=== PATIENT | female | born 1960 | race Caucasian/White ===

== ENCOUNTER 2016-09-22 19:48 | Inpatient (IN) | payer BC, OTHER ==
[~2016-09-22] VITALS: Ht 160 cm; Wt 44.5 kg
[2016-09-22 20:30] VITALS: BP 119/85
[2016-09-22] MEDS ORDERED: MAG HYDROX/AL HYDROX/SIMETH 30 ML LIQUID UDC PO PRN (20:30)
[2016-09-22] MEDS ORDERED: MAGNESIUM HYDROXIDE 30 ML LIQUID UDC PO PRN (20:30)
[2016-09-22] MEDS ORDERED: DICYCLOMINE HCL 20 MG TABLET PO PRN (20:30)
[2016-09-22] MEDS ORDERED: LOPERAMIDE HCL 2 MG CAPSULE PO PRN ×2 (20:30)
[2016-09-22] MEDS ORDERED: diphenhydrAMINE 50 MG CAPSULE PO PRN (20:30)
[2016-09-22] MEDS ORDERED: LORAZEPAM 2 MG/1 ML VIAL IM PRN (20:30)
[2016-09-22] MEDS ORDERED: THIAMINE HCL 200 MG/2 ML VIAL IM ONE (20:30)
[2016-09-22] MEDS ORDERED: LORAZEPAM 1 MG TABLET PO PRN ×2 (20:30)
[2016-09-22] MEDS ORDERED: MIRALAX 17 GM POWD.PACK PO PRN (20:30)
[2016-09-22] MEDS ORDERED: CLONIDINE HCL 0.1 MG TABLET PO PRN (20:30)
[2016-09-22] MEDS ORDERED: IBUPROFEN 600 MG TABLET PO PRN (20:30)
[2016-09-22] MEDS ORDERED: ONDANSETRON 4 MG/2 ML VIAL IM PRN (20:30)
--- NOTE | 2016-09-22 20:30 | NUR ---
ADMISSION NOTE PATIENT RECEIVED IN THE UNIT AT THIS TIME. PATIENT IS A 56 YEAR OLD FEMALE WHO PRESENTS TO [facility] FOR MEDICALLY SUPERVISED WITHDRAWAL FROM ETOH DEPENDENCE. VS BP- 119/85 P-87 T-97.8 R-18 PA-10/27 HEADACHE. SpO2 AT 98% ON RA. HEIGHT IS 5'3 AND WEIGHT 98 LBS. PATIENT IS ALLERGIC TO ERYTHROMYCIN. BODY CHECK DONE. PATIENT NOTED WITH ABRASION ON RIGHT FOREARM. SLIGHT BLEEDING AND RED IN COLOR. OLD SCAR ON RIGHT KNEE AND RIGHT ANKLE. LUNGS CLEAR . ABDOMEN SOFT AND NON-DISTENDED. BOWEL SOUNDS ACTIVE ON ALL QUADRANT. PATIENT STATES LAST BM WAS THIS MORNING, DIARRHEA X 2 BUT STATES SHE DID NOT HAVE ANY AFTER THAT. PATIENT DENIES DIFFICULTY URINATING. PATENT REQUESTED TO BE FULL CODE AND ON GLUTEN FREE DIET. ACCORDING TO HER SHE'S HERE FOR DETOX AND STATES HER MOM IS GETTING OLD AND HER DOG IS GETTING OLD. SHE CAN'T TAKE THIS ANYMORE. "I WANT TO MAKE THIS WORK". 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 SHE LIVES WITH HER MOM. PATIENT REPORTS PMH OF RIGHT KNEE TOTAL REPLACEMENT. RIGHT ANKLE SURGERY, IBS, (SIBO) SMALL INTESTINE BACTERIAL OVERGROWTH, GERD AND RETINA SURGERY (4 MONTHS AGO). NO SEIZURE HISTORY. SHE STATES HER MOM IS CANCER SURVIVOR (BREAST AND COLON CANCER). BOTH OF HER MOM AND SISTER ARE ALCOHOLIC. PATIENT'S PCP IS DR. JABARI GRAY. PATIENT IS THE SOURCE OF INFORMATION. PATIENT'S DRUG OF CHOICE ARE FF: ALCOHOL (BEER AND VODKA)-STARTED DRINKING WHEN SHE WAS 18 YEARS OLD. PATIENT DRINKS 2 SIX PACK AND 1 PINT OF VODKA EVERY WEEK FOR A MONTH. LAST DRINK WAS 1 PINT ON 09/22/16 PATIENT STATES THE LONGEST PERIOD OF SOBRIETY FOR HER WAS 6 YEARS ON [id number]. HER TREATMENT HISTORY WAS IN [place] ON [id number] AND IN [place] WHICH SHE'S UNABLE TO RECALL THE NAME IN 2004. SHE STATES SHE TAKES LINZESS FOR HER IBS AND NEXIUM FOR HER GERD. PATIENT APPEARS TO BE ANXIOUS, MODERATE INTOXICATION BUT COOPERATIVE AND ABLE TO ANSWERS QUESTIONS. PATIENT STATES SHE'S VERY ANXIOUS, SWEATING, NOTED WITH TREMORS, MILD HEADACHE. CIWA 10. PATIENT WAS SEEN BY DR. HEMPHILL WHILE IN INTAKE. PATIENT BROUGHT HOME MEDS AND WAS RECONCILED. PATIENT WAS PLACED ON FALL/SEIZURE PRECAUTION. PATIENT WAS ORIENTED TO SURROUNDINGS AND HOW TO USE CALL LIGHT. SAFETY MEASURES IN PLACE. CALL LIGHT IN REACH. WILL CONTINUE TO MONITOR.
[2016-09-22 20:38] LABS: *URINE HCG, QUAL NEGATIVE (NEGATIVE)
[2016-09-22 20:58] LABS: *AMPHETAMINE, URINE NEGATIVE (NEGATIVE); *BARBITURATE, URINE NEGATIVE (NEGATIVE); *CANNABINOID, URINE NEGATIVE (NEGATIVE); *COCCAINE, URINE NEGATIVE (NEGATIVE); *OPIATE, URINE NEGATIVE (NEGATIVE); *PHENCYCLIDINE SCREEN,URINE NEGATIVE (NEGATIVE)
[2016-09-22] MEDS ORDERED: LORAZEPAM 1 MG TABLET PO SCH (21:00)
[2016-09-22 21:29] LABS: BASOPHILS % (AUTO) 0.6 % (0.0-2.0); EOSINOPHILS # (AUTO) 0.1 K/uL (0.0-0.7); HEMOGLOBIN 13.1 g/dL (12.0-16.0); LYMPHOCYTES # (AUTO) 2.4 K/uL (0.8-4.8); LYMPHOCYTES % (AUTO) 35.5 % (20.5-51.5); MEAN CORPUSCULAR HEMOGLOBIN 30.4 uug (27.0-31.0); MEAN CORPUSCULAR HGB CONC 34 g/dL (32.0-37.0); MEAN CORPUSCULAR VOLUME 90.5 fL (81.0-99.0); MONOCYTES # (AUTO) 0.3 K/uL (0.1-1.30); MONOCYTES % (AUTO) 4.9 % (0.0-11.0); PLATELET COUNT (AUTO) 325 K/uL (150-450); RED BLOOD CELL COUNT(AUTO) 4.31 MIL/uL (4.20-5.40); RED CELL DISTRIBUTION WIDTH 14.4 % (11.5-14.5); WHITE BLOOD COUNT (AUTO) 6.8 K/uL (4.0-11.2)
--- NOTE | 2016-09-22 21:39 | NUR ---
ONE TIME ATIVAN ADMINISTRATION PATIENT ANXIOUS, RESTLESS, SWEATING AND TREMULOUS. CIWA 10. ONE TIME ATIVAN GIVEN . WILL MONITOR FOR EFFECTIVENESS
[2016-09-22 21:46] LABS: ALBUMIN 4.3 g/dL (3.4-5.0); BILIRUBIN,TOTAL 0.3 mg/dL (0.2-1.0); CALCIUM 8.8 mg/dL (8.5-10.1); CREATININE 0.6 mg/dL (0.6-1.3); POTASSIUM 3.9 mmol/L (3.5-5.1); TOTAL PROTEIN, SERUM 7.8 g/dL (6.4-8.2)
[2016-09-22 22:08] LABS: HIV-1 p24 ANTIGEN NON REACTIVE (NONREACTIVE); HIV-1/2 ANTIBODY NON REACTIVE (NONREACTIVE)
[2016-09-22 22:15] LABS: THYROID STIMULATING HORMONE 0.317 mIU/mL (0.358-3.740)
[2016-09-22] MEDS: HYDROXYZINE PAMOATE 25 MG CAPSULE PO PRN (22:36)
--- NOTE | 2016-09-22 22:36 | NUR ---
ATIVAN RE-ASSESSMENT /VISTARIL ADMINISTRATION PATIENT STATES ATIVAN IS ALREADY WORKING BUT SHE'S STILL ANXIOUS. CIWA 5. PRN VISTARIL GIVEN. WILL MONITOR FOR EFFECTIVENESS
--- NOTE | 2016-09-22 22:36 | NUR ---
BENADRYL ADMINISTRATION PATIENT REQUESTS FOR SLEEP AID. PRN BENADRYL RE-ASSESSMENT. WILL MONITOR FOR EFFECTIVENESS.
--- NOTE | 2016-09-22 23:10 | NUR ---
IV STARTED IV SODIUM CHLORIDE 0.9% STARTED ON LEFT ARM , 22 GAUGE. 125 MLS/HR ORDERED. INTACT AND PATENT . WILL CONTINUE TO MONITOR.
[2016-09-22] MEDS: IV NS 1000 ML 1,000 ML IV PRN (23:19)
--- NOTE | 2016-09-22 23:36 | NUR ---
PRN BENADRYL RE-ASSESSMENT PATIENT IN BED WITH EYES CLOSED. RESPIRATION EVEN AND UNLABORED. SAFETY MEASURES IN PLACE. CALL LIGHT IN REACH. WILL CONTINUE TO MONITOR.
[2016-09-23] VITALS: BP 112/76
[2016-09-23] MEDS: ACETAMINOPHEN 325 MG TABLET PO PRN (01:24)
--- NOTE | 2016-09-23 01:24 | NUR ---
PRN HEADACHE ADMINISTRATION PATIENT C/O HEADACHE 11/27. PRN TYLENOL GIVEN. WILL MONITOR FOR EFFECTIVENESS. Addendum: 09/23/16 at 0446 by DEEJAY GRAY LVN PRN TYLENOL ADMINISTRATION
--- NOTE | 2016-09-23 02:10 | NUR ---
PRN ATIVAN ADMINISTRATION PATIENT CAME UP AT THE NURSES STATION C/O ANXIETY, TREMULOUS, NO N/V. CIWA 7. RELAXATION TECHNIQUE PROVIDED. WILL MONITOR FOR EFFECTIVENESS
[2016-09-23] MEDS ORDERED: CARB32DR OP (02:22)
[2016-09-23] MEDS ORDERED: [UNRECOGNIZED DRUG - OTHER] EACHEYE (02:22)
[2016-09-23] MEDS ORDERED: [UNRECOGNIZED DRUG - OTHER] NS (02:22)
[2016-09-23] MEDS ORDERED: OLOP5DRO9 OP (02:22)
[2016-09-23] MEDS ORDERED: NICO2GUM9 BC (02:22)
[2016-09-23] MEDS ORDERED: [UNRECOGNIZED DRUG - OTHER] EACHEYE (02:22)
--- NOTE | 2016-09-23 02:24 | NUR ---
PRN TYLENOL RE-ASSESSMENT PATIENT TYLENOL HELPFUL AND EFFECTIVE. 07/30, TOLERABLE . WILL CONTINUE TO MONITOR.
--- NOTE | 2016-09-23 03:10 | NUR ---
PRN ATIVAN RE-ASSESSMENT PATIENT STATES ATIVAN HELPFUL AND EFFECTIVE. CIWA 2. WILL CONTINUE TO MONITOR.
[2016-09-23 04:00] VITALS: BP 124/87
[2016-09-23] MEDS ORDERED: NEXIUM PO (04:21)
[2016-09-23] MEDS ORDERED: LINA290C PO (04:21)
[2016-09-23] MEDS ORDERED: TRAZ-147 PO (04:21)
[2016-09-23] MEDS: HYDROXYZINE PAMOATE 25 MG CAPSULE PO PRN ×2 (05:49→16:19)
--- NOTE | 2016-09-23 05:49 | NUR ---
PRN VISTARIL ADMINISTRATION PATIENT C/O ANXIETY, RESTLESS. PRN VISTARIL. CONTINUE TO ENCOURAGE RELAXATION TECHNIQUE. WILL CONTINUE TO MONITOR.
--- NOTE | 2016-09-23 06:49 | NUR ---
PRN VISTARIL RE-ASSESSMENT PATIENT IN BED WITH EYES CLOSED. WILL CONTINUE TO MONITOR.
--- NOTE | 2016-09-23 07:30 | NUR ---
START OF SHIFT Rcvd client in room, she is A/O x 4, she presents with irritable mood, flat affect, she reports anxiety, fatigue, leg restlessness, and chills, she is c/o flushed face. She is on IV fluid therapy NaCl 0.9% 125ml/hr tolerating well, she has peripheral IV on Left hand 22G, intact. Encouraged increased fluids as tolerated. Encouraged group therapy attendance. Per shift supervisor film processing nurse, client is a 56 year old female admitted for ETOH withdrawal. She is on 4 day Ativan taper mariposa dose today @ 0900. Last CIWA 2 @ 0310, she had PRN Ativan 1mg CIWA 7 noted effective CIWA 2. PRN Benadryl for inability to sleep, slept 8 hrs. Tylenol for CEDILLO, noted effective. She reports PMH Anxiety, Depression, Fibromyalgia, Alcohol use disorder, Sedative-hypnotic use disorder, in remission. Past Surgical history Right knee replacement, Right shoulder surgery. She is full code, regular diet, Allergy to erythromycin (anaphylaxis) Client is on seizure precautions. Side rails up/padded x 2, call light within reach, bed locked in lowest positions. Will continue with plan of care.
--- NOTE | 2016-09-23 07:37 | NUR ---
END OF SHIFT NOTE PATIENT IS A 37 YEAR OLD MALE, ADMITTED FOR HEROIN/METH/CRACK AND ETOH. PATIENT WAS PLACED ON 5 DAYS SUBUTEX TAPER, COMPLETED . NO ADVERSE REACTION. PATIENT IS FULL CODE, REGULAR DIET AND NO KNOWN ALLERGY . PATIENT IS TO BE DISCHARGE TODAY. SKIN INTACT. ON FALL PRECAUTION. PATIENT ALERT AND ORIENTED X 4. RESPIRATION EVEN AND UNLABORED. PATIENT STATES HE ATTENDED ALL THE GROUPS. HAD BOWEL MOVEMENT . DENIES ANY PAIN. NO N/V. PATIENT DID NO REQUIRE ANY PRN MEDICATION DURING SHIFT. SAFETY MEASURES IN PLACE. CALL LIGHT IN REACH. WILL CONTINUE TO MONITOR. SLEPT 7 HOURS. FLUID INTAKE OF 620 ML. VOIDED X 2. NO BM. LAST COWS 0 AND CIWA 0. Addendum: 09/23/16 at 0742 by DEEJAY GRAY LVN ERROR CHARTING : THIS IS FOR ANOTHER PATIENT
--- NOTE | 2016-09-23 07:40 | NUR ---
END OF SHIFT NOTE PATIENT IS 56 YEAR OLD FEMALE, ADMITTED ON 09/22/16 FOR ETOH DEPENDENCE. PATIENT IS FULL CODE, GLUTEN FREE DIET AND ALLERGIC TO ERYTHROMYCIN. PATIENT WAS PLACED ON 4 DAY ATIVAN TAPER AND WILL START IN AM. PATIENT WAS ANXIOUS DURING SHIFT. PRN ATIVAN GIVEN, VISTARIL , BENADRYL FOR SLEEP AND TYLENOL FOR HEADACHE. PATIENT WAS STARTED ON IV SODIUM CHLORIDE 0.9 % AT 125 MLS/HR ON LEFT ARM , 22 G. RELAXATION TECHNIQUE AND POSITIVE ENCOURAGEMENT GIVEN. ON FALL/SEIZURE PRECAUTION. SAFETY MEASURES IN PLACE. CALL LIGHT IN REACH. SLEPT 3 HOURS. FLUID INTAKE 651 ML. VOIDED X 2. NO BM. LAST CIWA 2.
[2016-09-23] MEDS: IV NS 1000 ML 1,000 ML IV PRN (07:44)
[2016-09-23 08:00] VITALS: BP 135/91
[2016-09-23] MEDS: THIAMINE HCL 100 MG TABLET PO SCH (08:09)
[2016-09-23] MEDS: FOLIC ACID 1 MG TABLET PO SCH (08:09)
[2016-09-23] MEDS: MULTIVITAMINS,THERAPEUTIC TABLET PO SCH (08:09)
[2016-09-23] MEDS: LORAZEPAM 1 MG TABLET PO SCH ×3 (08:09→21:57)
[2016-09-23] MEDS: NEOMY/BACITRAC/POLYMI OINT 28.35 GM TUBE TOP SCH ×2 (08:59→16:19)
[2016-09-23] MEDS ORDERED: TUBERCULIN,PURIF.PROT.DERIV. 5 TU/0.1 ML TEST ID ONE (09:00)
[2016-09-23] MEDS: ONDANSETRON ODT 4 MG TAB.RAPDIS SL PRN (10:50)
--- NOTE | 2016-09-23 10:50 | NUR ---
PRN ZOFRAN 4MG SL Client reports nausea, no episodes of emesis, Zofran 4mg SL administered, risk/benefits discuss. Will continue to monitor. call light within reach.
--- NOTE | 2016-09-23 11:45 | NUR ---
nursing notes OWN MED BAG DOESN'T HAVE LINZESS. patient said "i will call my mother at 1600 and have her bring the medication."
--- NOTE | 2016-09-23 11:50 | NUR ---
REASSESSMENT PRN ZOFRAN 4MG SL Client reports relief from nausea, no episodes of emesis, Zofran 4mg effective. Will continue to monitor. call light within reach.
[2016-09-23 12:30] VITALS: BP 144/93
[2016-09-23] MEDS ORDERED: LORAZEPAM 1 MG TABLET PO ONE (12:30)
--- NOTE | 2016-09-23 12:33 | NUR ---
ONE TIME ATIVAN 1MG Client appears anxious, irritable mood, flat affect, flushed face, gross tremors, leg restlessness CIWA 10, Ativan 1mf PO administered. Will continue to monitor. Call light within reach.
--- NOTE | 2016-09-23 13:33 | NUR ---
REASSESSMENT ONE TIME ATIVAN 1MG Client is in bed, she appears less anxious, she states relief from leg restlessness, fine tremors noted, CIWA 7. Will continue to monitor.
[2016-09-23 16:18] VITALS: BP 158/99
--- NOTE | 2016-09-23 16:20 | NUR ---
PRN VISTARIL, CLONIDINE Client appears anxious, irritable, m/b increased BP 158/99, p98, chills, and flushed face noted. Vistaril 25mg and Clonidine 0.1mg PO administered. Risk/benefits discuss, will continue to monitor. call light within reach.
--- NOTE | 2016-09-23 17:20 | NUR ---
REASSESSMENT PRN VISTARIL, CLONIDINE Client states feeling less anxious, she is talking with peers, BP 134/88, p90. Vistaril 25mg and Clonidine 0.1mg effective. Will continue to monitor. call light within reach
[2016-09-23] MEDS ORDERED: MAGNESIUM HYDROXIDE 30 ML LIQUID UDC PO ONE (18:45)
[2016-09-23] MEDS ORDERED: HYDROXYZINE PAMOATE 25 MG CAPSULE PO ONE (18:45)
--- NOTE | 2016-09-23 18:45 | NUR ---
ONE TIME VISTARIL, MILK OF MAGNESIA Client appears anxious, MB increased P104, restlessness, Vistaril 50mg one time given PO. She reports constipation MOM 30mL PO administered. Will continue to monitor. Call light within reach.
--- NOTE | 2016-09-23 19:00 | NUR ---
END OF SHIFT Client is on 5 day Ativan taper, tolerating well, Last CIWA 9. She continues to present with flat affect and depressed mood. She is on IV fluid therapy NaCl 0.9% 125ml/hr tolerating well, she has peripheral IV on Left hand 22G, intact She denies any SI/HI. PRN Zofran for nausea, effective, one time Ativan 1mg for CIWA 10, after an hour CIWA 7 (Vistaril and Clonidine) given for anxiety, irritable mood, noted effective. One time of Vistaril 50mg and MOM 30mL for constipation, will endorse incoming nurse to reassess. Adequate intake and output. She was compliant with 1/3 of group therapy. She is full code, regular diet,allergy to EES. Client is on seizure precautions. Side rails up/padded x 2, call light within reach, bed locked in lowest positions.
--- NOTE | 2016-09-23 19:44 | NUR ---
Vistaril Reassessment: Pt is in bed with eyes closed. Respirations are even and unlabored. No s/s of acute distress noted. Vistaril effective AEB pt's ability to rest. All safety precautions are in place. Will continue to monitor.
--- NOTE | 2016-09-23 19:45 | NUR ---
Start of Shift Note: Report received from day shift nurse. Pt is a 56 yo female admitted on 09/22/16 for medically-supervised withdrawal from etoh. Pt reports drinking 12 beers and a pint of vodka each week. Pt is on day 2 of a 4-day Ativan taper. Last day shift CIWA=9. 22G in left hand currently running NS at 125 mL/hr. Pt is on a gluten-free diet. Pt reports allergy to erythromycin. Pt reports med hx: GERD, right TKR, right ankle surgery, SIBO, retina surgery. Pt is currently in bed with eyes closed. Respirations are even and unlabored. No s/s of acute distress. All safety precautions are in place. Will continue to monitor.
[2016-09-23 20:00] VITALS: BP 144/96
[2016-09-23] MEDS ORDERED: TRAZODONE 100 MG TABLET PO SCH (21:00)
--- NOTE | 2016-09-23 21:00 | NUR ---
Home Medication: Marilyn Pt's home medication Linzess dropped off to unit. Medication placed in "Patient's Own Medications Envelope", envelope signed by patient and nurse, and sealed in patient's presence. Medication to be dropped off to pharmacy when they open at 07:00.
[2016-09-23] MEDS ORDERED: DICYCLOMINE HCL 20 MG TABLET PO PRN (21:45)
[2016-09-23] MEDS: MIRALAX 17 GM POWD.PACK PO SCH (21:57)
--- NOTE | 2016-09-23 22:15 | NUR ---
MD COMMUNICATION: PT REPORTS TAKING TRAZODONE 200MG QHS FOR SLEEP. CURRENT ORDER IS FOR TRAZODONE 100MG QHS. RECEIVED ONE-TIME ORDER FOR TRAZODONE 100MG FROM DR DIAZ. WILL ENDORSE TO DAY SHIFT NURSE TO RECONCILE MEDICATION AND DOSAGE FOR RELAY TO PT'S PSYCHIATRIST, DR WATTERS
[2016-09-23] MEDS ORDERED: TRAZODONE 100 MG TABLET PO ONE (22:30)
--- NOTE | 2016-09-24 | NUR ---
Vitals Refused: Pt refused vital signs assessment. Pt educated on risks/benefits but refused x3. All safety precautions are in place. Will continue to monitor. Addendum: 09/24/16 at 0331 by RAJEEV FLOYD RN Amended: Links added.
--- NOTE | 2016-09-24 01:10 | NUR ---
PT REMOVED IV Pt removed IV from left hand. No current order for IV fluids. Will notify
[2016-09-24 04:00] VITALS: BP 117/59
--- NOTE | 2016-09-24 07:22 | NUR ---
End of Shift Note: Pt is a 56 yo female admitted to [facility] on 09/22/16 for medically-supervised withdrawal from etoh. Pt reports drinking 12 beers and a pint of vodka each week. Pt is to start day 3 of a 4-day Ativan taper. Scheduled medication regime effectively managed s/s of withdrawal this shift, and CIWA score decreased from 7 to 2. One-time order was received for Trazodone 100mg for insomnia. Home medication Linzess was delivered to unit by family member and to be delivered to pharmacy according to unit protocol. Pt reported anxiety and restless legs through the shift. Pt removed IV from her left hand; no current IV access. VSS through shift with HR and BP trending high at 115 and 144/96 at 20:00. Total fluid intake this shift: 500 ml; output: urine x 1 and BM x 0. Pt currently in bed and slept 7 hours this shift. Pt endorsed to day shift nurse.
--- NOTE | 2016-09-24 07:45 | NUR ---
START OF SHIFT Rcvd client in room, she sound asleep, easy to arouse, client is diaphoretic, assisted with changing clothes, and partial linen change, she is A/Ox 4, noted with depressed mood and flat affect, she reports fatigue, leg restlessness, and chills, she is c/o flushed face. Encouraged increased fluids as tolerated. Encouraged group therapy attendance. Per cage shift manager nurse, client admitted for ETOH withdrawal. She is on 4 day Ativan taper tolerating well. Last CIWA 2 @ 1999, she had PRN Trazodone 100mg and one time dose Trazodone 100mg for inability to sleep, effective she slept 7 hrs. Client reports taking Trazodone 200mg HS, will follow up with client's psychiatrist. PMH Anxiety, Depression, Fibromyalgia, Alcohol use disorder, Sedative-hypnotic use disorder, in remission. Past Surgical history Right knee replacement, Right shoulder surgery. She is full code, Gluten free diet, Allergy to erythromycin (anaphylaxis) Client is on seizure precautions. Side rails up/padded x 2, call light within reach, bed locked in lowest positions. Will continue with plan of care.
[2016-09-24] MEDS: PATIENT MAY USE OWN MED- MD OK PO SCH (08:13)
[2016-09-24] MEDS: NEOMY/BACITRAC/POLYMI OINT 28.35 GM TUBE TOP SCH ×2 (08:13→16:58)
[2016-09-24] MEDS: LORAZEPAM 1 MG TABLET PO SCH ×4 (08:13→20:41)
[2016-09-24] MEDS: MULTIVITAMINS,THERAPEUTIC TABLET PO SCH (08:13)
[2016-09-24] MEDS: THIAMINE HCL 100 MG TABLET PO SCH (08:13)
[2016-09-24] MEDS: FOLIC ACID 1 MG TABLET PO SCH (08:13)
[2016-09-24 08:16] VITALS: BP 136/89
[2016-09-24 08:34] LABS: CALCIUM 9.1 mg/dL (8.5-10.1); CREATININE 0.6 mg/dL (0.6-1.3); MAGNESIUM 2.1 mg/dL (1.8-2.4); PHOSPHOROUS 3.4 mg/dL (2.5-4.9); POTASSIUM 4.1 mmol/L (3.5-5.1)
[2016-09-24 09:20] LABS: THYROID STIMULATING HORMONE 0.56 mIU/mL (0.358-3.740)
[2016-09-24] MEDS ORDERED: diphenhydrAMINE 50 MG CAPSULE PO PRN (11:00)
[2016-09-24] MEDS ORDERED: CLONIDINE HCL 0.1 MG TABLET PO ONE (11:00)
[2016-09-24] MEDS: HYDROXYZINE PAMOATE 25 MG CAPSULE PO PRN (11:26)
--- NOTE | 2016-09-24 11:26 | NUR ---
PRN VISTARIL, ONE TIME CLONIDINE Client appears anxious, restless, gross tremors, diaphoresis noted, Increased BP 138/94, P126. Vistaril 25mg and one time dose clonidine 0.1mg PO administered, Will continue to monitor. Call light within reach.
[2016-09-24 12:08] LABS: HCV AB <0.1 s/co ratio (0.0-0.9); HEPATITIS B CORE AB, IgM Negative (Negative); HEPATITIS B SURFACE AG Negative (Negative)
--- NOTE | 2016-09-24 12:26 | NUR ---
REASSESSMENT PRN VISTARIL, ONE TIME CLONIDINE Client appears less anxious, moist skin noted, BP 128/94, P 100. She is able to join activities and participate in a game. Vistaril 25mg and one time dose clonidine 0.1mg effective. Call light within reach.
[2016-09-24] MEDS: GABAPENTIN 300 MG CAPSULE PO SCH ×2 (12:32→16:57)
[2016-09-24 12:34] VITALS: BP 128/94
[2016-09-24] MEDS: CLONIDINE HCL 0.1 MG TABLET PO SCH ×2 (14:05→20:40)
--- NOTE | 2016-09-24 14:35 | NUR ---
BRIEF NOTE Received dietary consult for client consuming "less than 50% of meals". Initial assessment completed on 09/23/16. Visited pt at room regarding diet preferences, pt stated that she is gluten and dairy free, hard for her to eat her preferred food items in hospital. Offered pt Boost Breeze drink once daily to supplement her current po intake, pt accepted, d/w RN (Nargis) regarding Boost order. Encouraged pt to communicate preferences to dietary staff when taking her order to help increase po intake. Full reassessment to occur as scheduled. Addendum: 09/24/16 at [address] Amended: Links added.
--- NOTE | 2016-09-24 15:54 | NUR ---
Dr. Penny ordered Trazodone 200mg HS, client verbalized understanding.
[2016-09-24 16:20] VITALS: BP 109/73
--- NOTE | 2016-09-24 17:10 | NUR ---
MD NOTIFICATION Client reports taking Cymbalta 60mg for depression HS for the past [address] Penny gave the order over the phone, read back at him. Charge nurse made aware.
[2016-09-24] MEDS: BOOST PLUS 237 ML LIQUID (VERY VANILLA) PO SCH (17:35)
--- NOTE | 2016-09-24 19:17 | NUR ---
END OF SHIFT Client is on 5 day Ativan taper to help manage s/s of w/d, Last CIWA 4. She continues to present with flat affect and depressed mood, chills, fine tremors. Registered dietitian recommended Boost plus d/t client consuming 50% or less of meals, Dr. Devries ordered Boots plus BID, client verbalized understanding. She denies any SI/HI. Dr. Penny ordered Cymbalta 60mg HS. client failed to report upon admission that she has been taking this medication for the past 5 years. PRN Vistaril and one time dose Clonidine given for anxiety, irritable mood, noted effective. Adequate fluid intake and output. She was compliant with 1/3 of group therapy. She is full code, gluten free diet,allergy to EES. Client is on seizure precautions. Side rails up/padded x 2, call light within reach, bed locked in lowest positions.
--- NOTE | 2016-09-24 19:30 | NUR ---
Start of Shift Note: Report received from day shift nurse. Pt is a 56 yo female admitted on 09/22/16 for medically-supervised withdrawal from ETOH. Pt reports drinking 12 beers and a pint of vodka each week. Pt is on day 3 of a 4-day Ativan taper. Last day shift CIWA=6. Pt is on a gluten-free diet. Pt reports allergy to erythromycin. Pt reports med hx: GERD, right TKR, right ankle surgery, SIBO, retina surgery. Pt came to nurses station during shift change requesting medications, and airborne missions systems nurse reports pt c/o new onset symptoms out of proportion to objective s/s of withdrawal during the day after speaking with other clients on the unit. Will reinforce coping skills utilization for anxiety and discomfort. Pt attended evening H&I for a short period of time, and did not attend during the day. Will reinforce importance of attendance. Will continue to monitor.
[2016-09-24 20:00] VITALS: BP 146/95
[2016-09-24] MEDS: MIRALAX 17 GM POWD.PACK PO SCH (20:40)
[2016-09-24] MEDS: DULOXETINE 60 MG CAPSULE.DR PO SCH (20:41)
[2016-09-24] MEDS: TRAZODONE 100 MG TABLET PO SCH (20:41)
--- NOTE | 2016-09-24 20:41 | NUR ---
PRN Motrin: Pt c/o headache. Pt rates pain 3/10. Administered PRN Motrin as ordered. Will continue to monitor.
--- NOTE | 2016-09-24 20:50 | NUR ---
MD Communication: Reported to Dr Devries regarding the pt's repeated requests for Miralax, Milk of Magnesia, and various other medications for constipation. Pt's bowel sounds active in all quadrants, and pt denies abdominal discomfort. Abdomen is soft and non-distended. Pt noted to be refusing meals and not drinking ordered Boost supplement. No new orders for laxatives, etc. Reported to Dr Devries that pt experiencing restless legs at night. Gabapentin dose to be adjusted.
[2016-09-24] MEDS ORDERED: GABAPENTIN 300 MG CAPSULE PO ONE (21:00)
[2016-09-24] MEDS ORDERED: DOCUSATE SODIUM 250 MG CAPSULE PO PRN (21:00)
--- NOTE | 2016-09-24 21:00 | NUR ---
21:00 GABAPENTIN NON-ADMIN: Pt difficult to arouse from sleep to administer 21:00 Gabapentin. Medication not administered because pt is too sedated. Will continue to monitor.
--- NOTE | 2016-09-24 21:45 | NUR ---
Reassessment: Pt is in bed with eyes closed. Respirations are even and unlabored. No s/s of acute distress noted. PRN Motrin effective. Will continue to monitor.
[2016-09-25] VITALS: BP 86/60
--- NOTE | 2016-09-25 04:00 | NUR ---
Vitals Refused: Pt refuses 04:00 v/s assessment. Pt educated on risks/benefits but continued to refuse. CARA deferred for sleep. Will continue to monitor. Addendum: 09/25/16 at 0544 by RAJEEV FLOYD RN Amended: Links added.
--- NOTE | 2016-09-25 07:23 | NUR ---
End of Shift Note: Pt is a 56 yo female admitted to [facility] on 09/22/16 for medically-supervised withdrawal from ETOH. Pt reports drinking 12 beers and a pint of vodka each week. Pt is to start the last day of a 4-day Ativan taper. Scheduled medication regime effectively managed s/s of withdrawal this shift, and CIWA score decreased from 5 to 2. One-time order was received for Trazodone 100mg for insomnia. Pt repeatedly requesting laxative medication and not consuming meals; Pt not compliant with dietary Boost supplement. Miralax and Milk of Mag discontinued by Dr Devries. Pt requested HS dose of Gabapentin for restless legs, but refused to wake up to take newly ordered medication. VSS through shift with HR and BP trending high at 112 and 146/95 at 20:00, then decreasing through the night while sleeping to 69 and 86/60. Total fluid intake this shift: 1945 ml; output: urine x 4 and BM x 1. Pt currently in bed and slept 7 hours this shift. Pt endorsed to day shift nurse.
--- NOTE | 2016-09-25 07:30 | NUR ---
Start Of Shit Pt is a 56 y/o female admitted to [facility] on 09/22/16 for medically-supervised withdrawal from ETOH. Pt is full code, regular diet on fall and seizure precaution reports allergy to erythromycin. Pt reports PMH of GERD, right TKR, right ankle surgery, SIBO, retina surgery. Pt is to start the last day of a 4-day Ativan taper tolerating well. Pt received PRN Motrin last night, medication effective per crime analyst nurse. Pt slept a total of 4 hours last night. Pt has an abrasion on her right arm. All safety measures in place, call light within reach, bed locked in lowest position, will continue to monitor and provide support.
[2016-09-25 08:00] VITALS: BP 99/66
[2016-09-25] MEDS: PATIENT MAY USE OWN MED- MD OK PO SCH (08:35)
[2016-09-25] MEDS: MULTIVITAMINS,THERAPEUTIC TABLET PO SCH (08:36)
[2016-09-25] MEDS: BOOST PLUS 237 ML LIQUID (VERY VANILLA) PO SCH ×2 (08:36→16:55)
[2016-09-25] MEDS: FOLIC ACID 1 MG TABLET PO SCH (08:36)
[2016-09-25] MEDS: CLONIDINE HCL 0.1 MG TABLET PO SCH ×3 (08:37→21:38)
[2016-09-25] MEDS: GABAPENTIN 300 MG CAPSULE PO SCH ×3 (08:37→15:01)
[2016-09-25] MEDS: LORAZEPAM 1 MG TABLET PO SCH ×3 (08:37→21:39)
[2016-09-25] MEDS: THIAMINE HCL 100 MG TABLET PO SCH (08:37)
[2016-09-25] MEDS: NEOMY/BACITRAC/POLYMI OINT 28.35 GM TUBE TOP SCH ×2 (08:38→16:55)
[2016-09-25 12:00] VITALS: BP 115/77
[2016-09-25] MEDS: HYDROXYZINE PAMOATE 25 MG CAPSULE PO PRN (13:04)
--- NOTE | 2016-09-25 13:04 | NUR ---
PRN MEDICATION Pt c/o Anxiety presented with agitation and restlessness requested something for relief, non-pharmacological techniques interventions provided x3 and were not effective. Vistaril 25mg, administered PO, educated pt about s/e of medication and when to contact nurse. all needs met, all safety measures in place, will continue to monitor.
--- NOTE | 2016-09-25 14:04 | NUR ---
PRN REASSESSMENT Medication effective pt reported a decrease in anxiety. All needs met, all safety measures in place will continue to monitor.
[2016-09-25 16:00] VITALS: BP 122/80
--- NOTE | 2016-09-25 19:20 | NUR ---
End Of Shit 318 Pt is a 56 y/o female admitted to [facility] on 09/22/16 for medically-supervised withdrawal from ETOH. Pt is full code, regular diet on fall and seizure precaution reports allergy to erythromycin. Pt reports PMH of GERD, right TKR, right ankle surgery, SIBO, retina surgery. Pt is on the last day of a 4-day Ativan taper tolerating well. Pt received PRN Vistaril for anxiety which was effective. Pt is going to have an abdominal x-ray as per MD order. Pt participated in some groups and activities during the day. Pt stated that the medications are working well at controlling the withdrawal symptoms, evidenced by low assessment scores during the day ranging from 6-3. Pt ate all of her meals. Pt keeps requesting laxatives, MD notified and aware, MD spoke with pt. Pts vital signs within normal limits, A/Ox4, denies chest pain. Respirations even unlabored, lungs clear upon auscultation abdomen soft and non- distended. Pt denies nausea, vomiting and diarrhea. Pt total fluid intake was 2800ml with 8 voids and no stool. Safety measures in place, call light within reach. All pertinent information discussed with date night sitter, endorsement given to date night sitter nurse.
--- NOTE | 2016-09-25 19:55 | NUR ---
Start of Shift Note: Report received from day shift nurse. Pt is a 56 yo female admitted on 09/22/16 for medically-supervised withdrawal from ETOH. Pt reports drinking 12 beers and a pint of vodka each week. Pt is on the last day of a 4-day Ativan taper. Last day shift CIWA=3. Pt reports allergy to erythromycin. Pt is on a gluten-free regular diet with Boost supplement ordered. Pt reports med hx: GERD, right TKR, right ankle surgery, SIBO, retina surgery. Pt is scheduled for ABD XR for reported ongoing constipation issues ; pt continues repeated requests for laxatives. Pt is currently in group and attended all 3 sessions today. Will continue to monitor.
[2016-09-25 20:00] VITALS: BP 143/91
[2016-09-25] MEDS ORDERED: GABAPENTIN 300 MG CAPSULE PO SCH (21:00)
[2016-09-25] MEDS: DULOXETINE 60 MG CAPSULE.DR PO SCH (21:38)
[2016-09-25] MEDS: TRAZODONE 100 MG TABLET PO SCH (21:39)
--- NOTE | 2016-09-25 22:20 | NUR ---
PRN Zofran and PRN Bentyl: Pt c/o nausea and stomach cramps. Administered PRN Zofran and PRN Bentyl as ordered. Will continue to monitor.
[2016-09-25] MEDS: ONDANSETRON ODT 4 MG TAB.RAPDIS SL PRN (22:21)
--- NOTE | 2016-09-25 23:20 | NUR ---
Reassessment: Pt is in bed with eyes closed. Respirations are even and unlabored. No s/s of acute distress noted. PRN Bentyl and PRN Zofran effective AEB pt's ability to rest. All safety precautions are in place. Will continue to monitor.
--- NOTE | 2016-09-26 | NUR ---
V/S Refused: Pt refuses 00:000 V/S and CIWA. Pt states that she wants to sleep. Pt educated on risks and benefits but still refused. All safety precautions are in place. Will continue to monitor. Addendum: 09/26/16 at 0058 by RAJEEV FLOYD RN Amended: Links added.
--- NOTE | 2016-09-26 04:00 | NUR ---
Vitals Refused: Pt refuses vitals as ordered. Pt verbalizes wanting to sleep. Pt educated on risks and benefits and still refuses. CARA deferred. Will continue to monitor. Addendum: 09/26/16 at 0525 by RAJEEV FLOYD RN Amended: Links added.
[2016-09-26] MEDS: PATIENT MAY USE OWN MED- MD OK PO SCH (06:57)
--- NOTE | 2016-09-26 07:30 | NUR ---
End of Shift Note: Pt is a 56 yo female admitted to [facility] on 09/22/16 for medically-supervised withdrawal from ETOH. Pt reports drinking 12 beers and a pint of vodka each week. Pt has completed a 4-day Ativan taper. Scheduled medication regime effectively managed s/s of withdrawal this shift, and last CIWA was 3. VSS through shift with BP trending high at 143/91 at 20:00. PRN Zofran was given nausea and PRN Bentyl was given for stomach cramps. Total fluid intake this shift: 1000 ml; output: urine x 3 and BM x 0. Pt currently in bed and slept 6 hours this shift. Pt endorsed to day shift nurse.
[2016-09-26 08:00] VITALS: BP 126/73
[2016-09-26] MEDS: BOOST PLUS 237 ML LIQUID (VERY VANILLA) PO SCH ×2 (08:00→16:19)
[2016-09-26] MEDS ORDERED: LORAZEPAM 1 MG TABLET PO SCH (09:00)
[2016-09-26] MEDS: FOLIC ACID 1 MG TABLET PO SCH (09:15)
[2016-09-26] MEDS: THIAMINE HCL 100 MG TABLET PO SCH (09:15)
[2016-09-26] MEDS: MULTIVITAMINS,THERAPEUTIC TABLET PO SCH (09:15)
[2016-09-26] MEDS: NEOMY/BACITRAC/POLYMI OINT 28.35 GM TUBE TOP SCH ×2 (09:16→17:00)
[2016-09-26] MEDS: GABAPENTIN 300 MG CAPSULE PO SCH ×3 (09:16→20:58)
[2016-09-26] MEDS: CLONIDINE HCL 0.1 MG TABLET PO SCH ×2 (09:16→20:57)
[2016-09-26 12:00] VITALS: BP 120/87
--- NOTE | 2016-09-26 12:07 | NUR ---
START OF SHIFT: RECEIVED PT A/O X 4. SHE PRESENTS WITH GUARDED AFFECT AND ANXIOUS MOOD. TREMORS TO BILATERAL HANDS. SHE STATES SHE IS SLEEPING WELL. SHE REPORTS ANXIETY AND STATES THE ATIVAN IS EFFECTIVE IN REDUCING S/S OF W/D. CIWA 3. ENCOURAGED INCREASED FLUIDS TO ASSIST IN FACILITATING DETOX PROCESS. SHE STATES SHE IS ATTENDING GROUPS. WILL CONTINUE TO MONITOR AND OFFER SUPPORT.
[2016-09-26] MEDS: HYDROXYZINE PAMOATE 25 MG CAPSULE PO PRN (12:20)
--- NOTE | 2016-09-26 12:25 | NUR ---
PRN VISTARIL GIVEN ORDERED FOR REPORTED ANXIETY. WILL MONITOR EFFECTIVENESS.
--- NOTE | 2016-09-26 13:00 | NUR ---
PT STATES VISTARIL WAS MILDLY EFFECTIVE AND ANXIETY REDUCED.
[2016-09-26] MEDS: LORAZEPAM 1 MG TABLET PO SCH ×2 (15:11→20:56)
[2016-09-26] MEDS: DICYCLOMINE HCL 20 MG TABLET PO SCH ×2 (15:12→20:56)
[2016-09-26 16:00] VITALS: BP 134/91
--- NOTE | 2016-09-26 19:18 | NUR ---
END OF SHIFT: PT CONTINUES ON ATIVAN TAPER.LAST CIWA 4. SHE IS SLIGHTLY TREMULOUS AND C/O ANXIETY INTERMITTENTLY TODAY. VISTARIL PRN GIVEN AND EFFECTIVE HIS AFTERNOON. SHE STATES SHE HAS BEEN EATING AND SLEEPING WELL. SHE SEEMS HYPER FOCUSED ON GETTING AN ORDER FOR MIRALAX AND IS VAGUE ABOUT WHEN HER LAST BM WAS. SHE DENIES AN ED. PT REFUSED ABT OINTMENT THIS AFTERNOON AND STATES SHE HAS ENOUGH LEFT OVER FROM THIS AM FOR ABRASION TO ARM. PT INTERACTS WITH PEERS AND ATTENDS GROUPS. WILL PASS SHIFT REPORT TO ONCOMING NURSE.
--- NOTE | 2016-09-26 19:30 | NUR ---
START OF SHIFT-- Pt is a 56 y/o female admitted to [facility] on 09/22/16 for ETOH dependancy.A/O X 4. Pt is full code, regular diet on fall and seizure precaution reports allergy to erythromycin. Pt is on Ativan taper tolerating well. Last CIWA = 4. All safety measures in place, call light within reach, bed locked in lowest position, will continue to monitor.
[2016-09-26 20:00] VITALS: BP 135/92
[2016-09-26] MEDS: DULOXETINE 60 MG CAPSULE.DR PO SCH (20:57)
[2016-09-26] MEDS: TRAZODONE 100 MG TABLET PO SCH (20:58)
[2016-09-26] MEDS: ONDANSETRON ODT 4 MG TAB.RAPDIS SL PRN ×2 (20:59→21:01)
[2016-09-26] MEDS: MIRALAX 17 GM POWD.PACK PO PRN (20:59)
--- NOTE | 2016-09-26 21:00 | NUR ---
PRN MEDS-- PRN ZOFRAN AND MIRALAX GIVEN ORDERED PER PT REQUEST.WILL MONITOR FOR EFFECTIVENESS.
--- NOTE | 2016-09-26 22:00 | NUR ---
PRN F/U-- NAUSEA RELIEVED,MIRALAX RESULT STILL PENDING.
[2016-09-27] VITALS: BP 101/62
[2016-09-27 04:00] VITALS: BP 95/59
--- NOTE | 2016-09-27 06:47 | NUR ---
END OF SHIFT-- Pt is a 56 y/o female admitted to [facility] on 09/22/16 for ETOH dependancy.A/O X 4. Pt is full code, regular diet on fall and seizure precaution reports allergy to erythromycin. Pt is on Ativan taper tolerating well. Last CIWA = 1.PRN meds zofran and miralax given last night. Miralax result still pending. Pt slept 8 hrs;fluid intake was 1355 mls;urine x 3 .All safety measures in place, call light within reach, bed locked in lowest position, will continue to monitor.
[2016-09-27] MEDS: PATIENT MAY USE OWN MED- MD OK PO SCH (07:27)
--- NOTE | 2016-09-27 07:50 | NUR ---
START OF SHIFT NOTE Received report from night nurse. 56 year old female admitted for ETOH dependence. Pt reported past medical hx GERD, total knee replacement, right ankle surgery, IBS, retinal surgery, small intestinal bacterial overgrowth. Per endorsement, pt received PRN Zofran and Miralax. Last CIWA 1. Upon assessment pt is aox4, denies any pain or discomfort. Pt reported Miralax is not effective yet. VS stable. Safety measures in place. Call light within reach. Will continue to monitor.
[2016-09-27 08:00] VITALS: BP 112/67
[2016-09-27] MEDS: BOOST PLUS 237 ML LIQUID (VERY VANILLA) PO SCH ×2 (08:34→17:00)
[2016-09-27] MEDS: MULTIVITAMINS,THERAPEUTIC TABLET PO SCH (08:34)
[2016-09-27] MEDS: GABAPENTIN 300 MG CAPSULE PO SCH ×3 (08:34→21:12)
[2016-09-27] MEDS: DICYCLOMINE HCL 20 MG TABLET PO SCH ×3 (08:34→21:12)
[2016-09-27] MEDS: THIAMINE HCL 100 MG TABLET PO SCH (08:35)
[2016-09-27] MEDS: FOLIC ACID 1 MG TABLET PO SCH (08:35)
[2016-09-27] MEDS: CLONIDINE HCL 0.1 MG TABLET PO SCH (08:36)
[2016-09-27] MEDS: NEOMY/BACITRAC/POLYMI OINT 28.35 GM TUBE TOP SCH ×2 (08:37→16:57)
[2016-09-27] MEDS ORDERED: LORAZEPAM 1 MG TABLET PO SCH (09:00)
--- NOTE | 2016-09-27 10:00 | NUR ---
REASSESSMENT Pt reported Miralax effective, pt reported having small BM.
[2016-09-27 12:00] VITALS: BP 127/96
[2016-09-27 16:00] VITALS: BP 130/81
[2016-09-27] MEDS: HYDROXYZINE PAMOATE 25 MG CAPSULE PO PRN (17:22)
--- NOTE | 2016-09-27 17:22 | NUR ---
PRN MED Pt c/o anxiety,agitation, non pharmacological intervention ineffective. Administered PRN Vistaril 50mg as ordered. Will cont to monitor the effectiveness.
[2016-09-27 18:19] LABS: *AMPHETAMINE, URINE NEGATIVE (NEGATIVE); *BARBITURATE, URINE NEGATIVE (NEGATIVE); *CANNABINOID, URINE NEGATIVE (NEGATIVE); *COCCAINE, URINE NEGATIVE (NEGATIVE); *OPIATE, URINE NEGATIVE (NEGATIVE); *PHENCYCLIDINE SCREEN,URINE NEGATIVE (NEGATIVE)
--- NOTE | 2016-09-27 18:22 | NUR ---
REASSESSMENT Upon reassessment pt reported medication effective anxiety and agitation subside.
--- NOTE | 2016-09-27 19:25 | NUR ---
END OF SHIFT NOTE: Gave report to night nurse, 56 year old female admitted for ETOH dependence. Pt reported past medical hx GERD, total knee replacement, right ankle surgery, IBS, retinal surgery, small intestinal bacterial overgrowth. During shift pt received PRN Vistaril with good effect. Last CIWA-1. Pt scheduled for discharge in AM. Urine drug screen completed. Pt reported excited being discharge tomorrow. Pt's total intake of fluids 4001ml, with 5 voided, x1 stool. Safety measures in place, call light within reach. Pt endorsed to night nurse in stable condition.
--- NOTE | 2016-09-27 19:30 | NUR ---
START OF SHIFT-- Pt is a 56 year old female admitted for ETOH dependence. Pt is A/O X 4,full code,regolar diet,allergic to Erythromycin,received in stable condition. Last CIWA-1. Pt scheduled for discharge in AM. Urine drug screen completed. Pt reported excited being discharge tomorrow. Safety measures in place, Bed in lowest position, side rails up x2, call-light within reach. Will continue to monitor.
[2016-09-27] MEDS: ACETAMINOPHEN 325 MG TABLET PO PRN (19:52)
--- NOTE | 2016-09-27 19:53 | NUR ---
PRN TYLENOL GIVEN ORDERED FOR C/O HEADACHE.WILL MONITOR.
[2016-09-27 20:00] VITALS: BP 118/79
[2016-09-27] MEDS ORDERED: CLONIDINE HCL 0.1 MG TABLET PO PRN (20:00)
--- NOTE | 2016-09-27 20:00 | NUR ---
HEADACHE RELIEVED.PRN EFFECTIVE. Addendum: 09/27/16 at 2127 by ZENA ROCHA RN DOCUMENTED AT 2100.
[2016-09-27] MEDS: TRAZODONE 100 MG TABLET PO SCH (21:12)
[2016-09-27] MEDS: DULOXETINE 60 MG CAPSULE.DR PO SCH (21:12)
[2016-09-27] MEDS: ONDANSETRON ODT 4 MG TAB.RAPDIS SL PRN (21:13)
--- NOTE | 2016-09-27 21:15 | NUR ---
PRN ZOFRAN GIVEN FOR NAUSEA PER PT REQUEST.NO C/O VOMITING NOTED.WILL MONITOR.
[2016-09-27] MEDS: MIRALAX 17 GM POWD.PACK PO PRN (21:23)
--- NOTE | 2016-09-27 21:25 | NUR ---
PRN MIRALAX GIVEN FOR C/O CONSTIPATION.PO FLUIDS ENCOURAGED TOLERATED.WILL MONITOR.
[2016-09-27] MEDS ORDERED: Docusate Sodium PO (21:37)
[2016-09-27] MEDS ORDERED: HYDR-3895 PO (21:37)
[2016-09-27] MEDS ORDERED: Trazodone Hcl PO (21:37)
[2016-09-27] MEDS ORDERED: DICY20TA28 PO (21:37)
[2016-09-27] MEDS ORDERED: Gabapentin PO (21:37)
[2016-09-27] MEDS ORDERED: Duloxetine Hcl PO (21:37)
--- NOTE | 2016-09-27 22:15 | NUR ---
PRN F/U NAUSEA RELIEVED.PRN ZOFRAN IS EFFECTIVE.
[2016-09-28] VITALS: BP 110/76
[2016-09-28 04:00] VITALS: BP 108/71
--- NOTE | 2016-09-28 06:45 | NUR ---
END OF SHIFT--- Pt is a 56 year old female admitted for ETOH dependence. Pt is A/O X 4,full code,regolar diet,allergic to Erythromycin,received in stable condition. Last CIWA-. Pt scheduled for discharge this morning.. Urine drug screen completed. PRN Zofran given for nausea; no c/o vomiting noted. Pt slept 6 hrs last night;fluid intake was 2000 mls;voide x 4 . Safety measures in place, Bed in lowest position, side rails up x2, call-light within reach. Will continue to monitor. Addendum: 09/28/16 at 0701 by ZENA ROCHA RN PRN MIRALAX WAS GIVEN FOR CONSTIPATION,RESULT STILL PENDING.
[2016-09-28] MEDS: PATIENT MAY USE OWN MED- MD OK PO SCH (06:50)
[2016-09-28] MEDS: ACETAMINOPHEN 325 MG TABLET PO PRN (06:50)
--- NOTE | 2016-09-28 06:55 | NUR ---
PRN TYLENOL GIVEN FOR HEADACHE.DAY SHIFT NURSE NOTIFIED TO MONITOR FOR EFFECTIVENESS.
[2016-09-28] MEDS: BOOST PLUS 237 ML LIQUID (VERY VANILLA) PO SCH (08:00)
--- NOTE | 2016-09-28 08:00 | NUR ---
START OF SHIFT Pt 56 y/o female admitted for etoh dependence. Pt received in room awake watching television. Pt alert and oriented to name, place, and time. Perrla. Skin warm and dry to touch. Respirations even and unlabored. It was reported that pt slept for 6 hours last night. Pt is scheduled to be discharged today and is excited. Bed on lowest position with side rails x2 up for safety. Call light within reach. No distress noted at this time.
[2016-09-28] MEDS: DICYCLOMINE HCL 20 MG TABLET PO SCH (09:08)
[2016-09-28] MEDS: FOLIC ACID 1 MG TABLET PO SCH (09:08)
[2016-09-28] MEDS: THIAMINE HCL 100 MG TABLET PO SCH (09:08)
[2016-09-28] MEDS: MULTIVITAMINS,THERAPEUTIC TABLET PO SCH (09:08)
[2016-09-28] MEDS: NEOMY/BACITRAC/POLYMI OINT 28.35 GM TUBE TOP SCH (09:09)
[2016-09-28] MEDS: GABAPENTIN 300 MG CAPSULE PO SCH (09:59)
[2016-09-28] MEDS: ONDANSETRON ODT 4 MG TAB.RAPDIS SL PRN (10:12)
--- NOTE | 2016-09-28 10:12 | NUR ---
PRN Pt with c/o nausea. Zofran po prn per MD order given and tolerated well.
--- NOTE | 2016-09-28 11:00 | NUR ---
DISCHARGE Pt discharged to [facility] via private route relief driver. Pt alert and oriented to name, place, and time. Perrla. Skin warm and dry to touch. Respirations even and unlabored. No hand tremors noted. Pt excited about discharge. Pt medication compliant and tolerated well. No ASE noted. VS wnl. No belongings in cabinet noted. There was no home medications in cassettes. Pt did have home medications that were brought by pt were given back and packed in bag. All discharge papers done and completed. No distress noted. Pt states, " I'm ready and excited to be discharged."
--- NOTE | 2016-09-28 11:00 | NUR ---
PRN EVAL Pt denies and nausea and stated the medication was effective.
== END 2016-09-28 11:00 | disposition home or self-care (01) | DRG 895 ==
LOC: SRC 19:48
PROVIDERS: ADMIT Internal Medicine; ATTEND Internal Medicine
PROC: HZ2ZZZZ Detoxification Services for Substance Abuse Treatment (ICD-10-PCS; principal; 2016-09-22)
PROC: HZ31ZZZ Individual Counseling for Substance Abuse Treatment, Behavioral (ICD-10-PCS; 2016-09-23)
PROC: HZ41ZZZ Group Counseling for Substance Abuse Treatment, Behavioral (ICD-10-PCS; 2016-09-25)
DX: F10.230 Alcohol dependence with withdrawal, uncomplicated (principal); E87.3 Alkalosis; F10.229 Alcohol dependence with intoxication, unspecified; Y90.9 Presence of alcohol in blood, level not specified; Z88.1 Allergy status to other antibiotic agents; M79.7 Fibromyalgia; Z87.892 Personal history of anaphylaxis; Z81.1 Family history of alcohol abuse and dependence; Z96.651 Presence of right artificial knee joint; K58.9 Irritable bowel syndrome, unspecified; S50.811A Abrasion of right forearm, initial encounter; X58.XXXA Exposure to other specified factors, initial encounter; Y92.89 Other specified places as the place of occurrence of the external cause; E07.81 Sick-euthyroid syndrome; E86.0 Dehydration; F41.0 Panic disorder [episodic paroxysmal anxiety]; G47.00 Insomnia, unspecified; F13.21 Sedative, hypnotic or anxiolytic dependence, in remission; F32.9 Major depressive disorder, single episode, unspecified; G89.29 Other chronic pain; F50.9 Eating disorder, unspecified; F60.3 Borderline personality disorder; F45.0 Somatization disorder
CPT/HCPCS: 36415; 70030-TC; 74000; 80307; 83690; 83735; 84100; 84443; 84703; 85025; 86580; 86592; 86705; 86803; 87340; 87806; A4663; G6040-TC; J3411; J7030; Q0162; Q0163

== ENCOUNTER 2016-11-18 14:17 | Inpatient (IN) | payer BC, OTHER ==
[~2016-11-18] VITALS: Ht 160 cm; Wt 47.6 kg
[~2016-11-18 14:17] MED LIST: CARB32DR OP; DICY20TA28 PO; Docusate Sodium PO; Duloxetine Hcl PO; Gabapentin PO; HYDR-3895 PO; LINA290C PO; NICO2GUM9 BC; OLOP5DRO9 OP; Trazodone Hcl PO
--- NOTE | 2016-11-18 14:33 | NUR ---
Intake assessment Pt states that she is being admitted for ETOH dependence. Pt appears to be intoxicated. Pt has gross tremors, pt is AxOx4, pt reports that she drank a "6 pack of beer and half of a pint of vodka" just prior to admission. VS are WNL: BP 120/77 HR 92 R 17 . Pt is approved to come up to unit by Dr Devries on a 1:1 sitter for safety d/t unsteady gait. Will continue to monitor pt.
[2016-11-18] MEDS ORDERED: LOPERAMIDE HCL 2 MG CAPSULE PO PRN ×2 (15:00)
[2016-11-18] MEDS ORDERED: LORAZEPAM 1 MG TABLET PO PRN (15:00)
[2016-11-18] MEDS ORDERED: ACETAMINOPHEN 325 MG TABLET PO PRN (15:00)
[2016-11-18] MEDS ORDERED: GABAPENTIN 300 MG CAPSULE PO SCH (15:00)
[2016-11-18] MEDS ORDERED: DICYCLOMINE HCL 20 MG TABLET PO PRN (15:00)
[2016-11-18] MEDS ORDERED: ONDANSETRON 4 MG/2 ML VIAL IM PRN (15:00)
[2016-11-18] MEDS ORDERED: MAG HYDROX/AL HYDROX/SIMETH 30 ML LIQUID UDC PO PRN (15:00)
[2016-11-18] MEDS ORDERED: THIAMINE HCL 200 MG/2 ML VIAL IM ONE (15:00)
[2016-11-18] MEDS ORDERED: diphenhydrAMINE 50 MG CAPSULE PO PRN (15:00)
[2016-11-18] MEDS ORDERED: PATIENT MAY USE OWN MED- MD OK EACHEYE PRN (15:00)
[2016-11-18] MEDS ORDERED: LORAZEPAM 2 MG/1 ML VIAL IM PRN (15:00)
[2016-11-18] MEDS ORDERED: MAGNESIUM HYDROXIDE 30 ML LIQUID UDC PO PRN (15:00)
[2016-11-18] MEDS ORDERED: OLOPATADINE 0.1% OPHT DROP 5 ML BOTTLE EACHEYE PRN (15:15)
[2016-11-18] MEDS: HYDROXYZINE PAMOATE 25 MG CAPSULE PO PRN ×2 (15:44→23:37)
[2016-11-18 16:09] LABS: BASOPHILS % (AUTO) 0.7 % (0.0-2.0); EOSINOPHILS % (AUTO) 0.2 % (0.0-7.0); HEMATOCRIT 37.9 % (37-47); HEMOGLOBIN 12.6 G/DL (12.0-16.0); LYMPHOCYTES # (AUTO) 3.1 K/UL (0.8-4.8); LYMPHOCYTES % (AUTO) 46.3 % (20.5-51.5); MEAN CORPUSCULAR HEMOGLOBIN 29.6 UUG (27.0-31.0); MEAN CORPUSCULAR HGB CONC 33 g/dL (32.0-37.0); MEAN CORPUSCULAR VOLUME 88.8 FL (81.0-99.0); MONOCYTES # (AUTO) 0.5 K/UL (0.1-1.30); MONOCYTES % (AUTO) 6.9 % (0.0-11.0); NEUTROPHILS % (AUTO) 45.9 % (38.5-71.5); PLATELET COUNT (AUTO) 298 K/UL (150-450); RED BLOOD CELL COUNT(AUTO) 4.27 MIL/UL (4.2-5.4); WHITE BLOOD COUNT (AUTO) 6.6 K/UL (4.0-11.2)
--- NOTE | 2016-11-18 16:18 | NUR ---
ADMISSION Admitted a 56 year old female from [facility]. Patient arrived on unit at 1437. patient is alert and oriented x4, appears intoxicated, noted with slurred speech and flushed. patient vital signs: 120/77 p: 92, t: 98.0, r: 17 o2 sat: 98%. Patient oriented to unit and to room, educated regarding call light use. Patient was seen and examined by Dr. vizcarra, admitting orders were input into [employer]. Patient placed with 1:1 sitter for safety precautions d/t unsteady gait. patient Was also seen by Dr. Ann (psychiatrist). Patients body assessment completed by staff nurse, patients skin is intact, no breakdown, bruising or discoloration noted. patient body search completed by female LIGHT INDUSTRIAL SUPERVISOR no contraband found. Patient weights 105 lbs and is 5 feet 3 inches. Patient reports allergies to: erythromycin base. Patient reports she is here to detox off of alcohol. Reports patient relapsed one week ago and for the past week has been consumin-12oz Heineken beers and 1 pint of vodka daily. Patient reports last consumed alcohol drink was: today prior to admission, per patient she consumed 4 12 oz beers and 1/4 pint of vodka. Patient reports longest period of sobriety was for 9 years, 10 years ago. Patient reports has been to 4 treatment center before, reports 1. [facility] in [place] for 3 months, [facility] 2 months ago for 5 days, and [facility] in [place] does not recall for how long was there 5 months ago, [facility] treatment center patient does not recall. Patient brought home medications, medications were input into [employer] in [employer]. patient reports she has past medical history of: depression was diagnosed at the age of 46. Reports her primary care physician is Dr. Glenn Baldwin in [place]. Patient denies any history of seizures. Patient patient any family history of pre existing medical conditions or hx of family substance abuse. Patient reports past surgical history of ankle surgery 10 years ago. Patient with admitting ciwa score of: 6 presenting with: mild nausea with no vomiting, fine tremors, barely sweating, mild anxiety and mild agitation. Patient was administered Vistaril 25mg Po at 1545 for increase in anxiety, provided patient with calming reassurance and non pharmacological interventions with no relief, will monitor effectiveness of medication. patients respirations are even and unlabored, no SOB, lungs clear upon auscultation. Abdomen is soft and non distended. bowel sounds heard in all quadrants. Safety measures in place. call light kept with in reach, all needs met and rendered.
[2016-11-18 16:37] LABS: *URINE HCG, QUAL NEGATIVE (NEGATIVE)
[2016-11-18 16:51] LABS: *AMPHETAMINE, URINE NEGATIVE (NEGATIVE); *BARBITURATE, URINE NEGATIVE (NEGATIVE); *CANNABINOID, URINE NEGATIVE (NEGATIVE); *COCCAINE, URINE NEGATIVE (NEGATIVE); *OPIATE, URINE NEGATIVE (NEGATIVE); *PHENCYCLIDINE SCREEN,URINE NEGATIVE (NEGATIVE)
[2016-11-18 16:53] VITALS: BP 120/83
[2016-11-18 16:59] LABS: BILIRUBIN,TOTAL 0.2 mg/dL (0.2-1.0); CREATININE 0.6 mg/dL (0.6-1.3); POTASSIUM 3.9 mmol/L (3.5-5.1); TOTAL PROTEIN, SERUM 7.4 g/dL (6.4-8.2)
[2016-11-18 17:06] LABS: THYROID STIMULATING HORMONE 0.58 mIU/mL (0.358-3.740)
[2016-11-18] MEDS: CLONIDINE HCL 0.1 MG TABLET PO PRN (17:29)
--- NOTE | 2016-11-18 18:57 | NUR ---
END OF SHIFT Patient alert and oriented x4, vital signs stable during shift. Patient with admitting Dx: ETOH dependance. Patient admitted today during shift. Patient encouraged to increase PO fluid intake as tolerated. Relayed alcohol level of 0.[address] Devries. Patient with c/o feels increase in anxiety, provided patient with calming reassurance as needed and encouraged to express. Patient was administered Vistaril at 1545, medication was ineffective one hour post administration. Patient was administered Clonidine 0.1mg Po for increase anxiety at 1729, medication effective one hour post administration. 1700 assessment patient presented with: mild nausea, tremors that can be felt but not seen, barely sweating, moderate anxiety and mild agitation with ciwa score of: 8Encouraged to attend group therapies/sessions to learn new coping skills to prevent relapse, denies any SI/HI. Safety measures in place. call light kept with in reach. all needs met and rendered. patient endorsed to restaurant shift leader nurse, all pertinent information discussed.
--- NOTE | 2016-11-18 19:15 | NUR ---
Start of Shift Note: Patient is a 56 y/o female admitted today 11/18/16 for ETOH dependence. Patient reported drinking 12 cans of 12oz Heineken beer and 1 pint of Vodka daily for 1 week. Patient with surgical history of right ankle surgery, small intestinal bacterial overgrowth. Patient is on a regular diet with allergies to erythromycin. Full Code status. Fall & Seizure precaution. Skin intact. Patient is on a 1:1 observation for unsteady gait. Patient has no taper yet. PRN medications available for symptoms of withdrawal. Last CIWA is 8. Pt was given PRN Clonidine & Vistaril during day shift. Patient is alert & oriented x4. Speech is clear with no slurring of speech noted. No shortness of breath noted. Respiration even & unlabored. Abdomen soft & non-distended. Nausea noted with no episode of vomiting noted. Patient complains of moderate headache, mild anxiety & mild agitation. Tremors felt but not seen. Patient denies hallucinations. Safety measures in place. Bed locked in lowest position. Both side rails up. Call light within pts reach. Will continue to monitor patient.
[2016-11-18 20:00] VITALS: BP 128/78
[2016-11-18] MEDS: IBUPROFEN 400 MG TABLET PO PRN (20:54)
[2016-11-18] MEDS: LORAZEPAM 1 MG TABLET PO PRN (20:54)
[2016-11-18] MEDS: ONDANSETRON ODT 4 MG TAB.RAPDIS SL PRN (20:54)
[2016-11-18] MEDS: TRAZODONE 100 MG TABLET PO SCH (20:54)
--- NOTE | 2016-11-18 20:54 | NUR ---
PRN Administration Patient complains of 6/10 headache, slight nausea, mild anxiety and mild agitation. No nausea noted. Patient appears anxious. Hand tremors felt but not seen. Patient denies hallucinations. CIWA 8 noted. Vitals WNL. PRN Motrin, Zofran and Ativan 1mg administered as ordered. Will reassess in 1 hour. Will continue to monitor patient.
--- NOTE | 2016-11-18 21:54 | NUR ---
PRN Reassessment Patient verbalized decreased in anxiety, improved nausea and slight relief from headache. Bilateral hand tremors felt. Safety measures in place. Will continue to monitor patient.
[2016-11-18] MEDS: MIRALAX 17 GM POWD.PACK PO PRN (23:29)
--- NOTE | 2016-11-18 23:29 | NUR ---
PRN Miralax Patient is requesting for Miralax for constipation. Patient reported that she takes Miralax everynight at home d/t frequent constipation. PRN Miralax administered as ordered. Will continue to monitor for bowel movement.
--- NOTE | 2016-11-18 23:37 | NUR ---
PRN Vistaril Patient complains of anxiety. Patient is restless and anxious. PRN Vistaril administered as ordered. Will reassess in 1 hour. Will continue to monitor patient.
[2016-11-19] VITALS: BP 104/65
[2016-11-19] MEDS ORDERED: POLY17PO4 PO (00:15)
--- NOTE | 2016-11-19 00:37 | NUR ---
PRN Reassessment Patient still complaining of anxiety. Patient lying in bed and appears anxious and restless. No s/s of distress. Safety measures in place. Will continue to monitor.
[2016-11-19] MEDS: LORAZEPAM 1 MG TABLET PO PRN (01:14)
--- NOTE | 2016-11-19 01:14 | NUR ---
PRN Ativan Patient complains of anxiety, mild headache and slight nausea. Patient appears anxious and with slight agitation noted. Bilateral hand tremors noted. Patient denies hallucinations. CIWA 9. Vitals taken. B/P 104/65 IA 104 RR 16, O2Sat 95% Temp 97.5. PRN Ativan administered as ordered. Will reassess in 1 hour. Will continue to monitor patient.
--- NOTE | 2016-11-19 02:14 | NUR ---
PRN Reassessment Patient asleep in bed and appears comfortable. No s/s of distress noted. No facial grimacing noted. Safety measures in place. Will continue to monitor patient.
[2016-11-19 04:00] VITALS: BP 99/60
--- NOTE | 2016-11-19 07:05 | NUR ---
End of Shift Note: Pt alert & oriented x4. Patient is a 56 y/o female admitted yesterday 11/18/16 for ETOH dependence. Patient with medical history of right ankle surgery & small intestinal bacterial overgrowth. Pt remained stable during my shift. Vitals remains WNL. Pt was given PRN Zofran, Motrin, Vistaril and Ativan x2 for symptoms of withdrawal. Pt also complains of constipation and was given Miralax. No bowel movement noted on my shift. Pt still has no taper. PRN medications available for symtoms of withdrawal. Last COWS is 9. Pt was observed with a steady gait at around 2200. 1:1 discontinued. Pt still asleep at this time. No shortness of breath noted. Respiration even & unlabored. No s/s of distress noted. Patient able to sleep for a total of 3 hours. Pt consumed 2302ml of fluids. Voided 5x with no bowel movement. All needs attended & met. Safety precautions are in place. Will endorse pt to day shift nurse.
--- NOTE | 2016-11-19 07:47 | NUR ---
START OF SHIFT Received pt this Am Aox4. Patient presents fatigued and tired. Patient reports she didn't sleep much last night and is feeling tired and wants to keep sleeping. No taper ordered yet, patient is on PRNs only. Patient given PRN Zofran, Motrin, Vistaril, Ativan x2, and Miralax per night nurse. Last CIWA 9. Patient slept 3 hours. Encouraged increase in fluids to facilitate detox and increase hydration. Encouraged patient to notify RN if S/S of W/D worsen. Patient currently laying in bed with bed locked and in lowest position, side rails padded x2, call cantor within reach. Will provide safe and supportive environment. Will continue to monitor.
[2016-11-19 08:00] VITALS: BP 112/75
[2016-11-19] MEDS: PATIENT MAY USE OWN MED- MD OK PO SCH (08:11)
[2016-11-19] MEDS: DULOXETINE 30 MG CAPSULE.DR PO SCH (08:11)
[2016-11-19] MEDS: FOLIC ACID 1 MG TABLET PO SCH (08:12)
[2016-11-19] MEDS: MULTIVITAMINS,THERAPEUTIC TABLET PO SCH (08:12)
[2016-11-19] MEDS: DOCUSATE SODIUM 250 MG CAPSULE PO SCH (08:12)
[2016-11-19] MEDS: THIAMINE HCL 100 MG TABLET PO SCH (08:12)
[2016-11-19] MEDS ORDERED: TUBERCULIN,PURIF.PROT.DERIV. 5 TU/0.1 ML TEST ID ONE (09:00)
[2016-11-19] MEDS: HYDROXYZINE PAMOATE 25 MG CAPSULE PO PRN ×2 (11:14→18:26)
--- NOTE | 2016-11-19 11:15 | NUR ---
PRN MEDS PRN Vistaril given for anxiety. Patient appears anxious and restless. Will reassess
--- NOTE | 2016-11-19 11:50 | NUR ---
PRN REASSESSMENT Patient states she feels a little better. She appears less anxious and shes resting calmly in her bed. Will continue to monitor.
[2016-11-19 12:00] VITALS: BP 150/93
[2016-11-19] MEDS: CLONIDINE HCL 0.1 MG TABLET PO PRN ×2 (13:17→20:40)
--- NOTE | 2016-11-19 13:17 | NUR ---
PRN MEDS PRN Clonidine given for c/o anxiousness. Patient's blood pressure is slightly elevated at 150/93. HR 90. Will reassess
[2016-11-19] MEDS ORDERED: HYDR-3895 PO (13:32)
[2016-11-19] MEDS ORDERED: CLON0.1T14 PO (13:32)
--- NOTE | 2016-11-19 14:00 | NUR ---
PRN REASSESSMENT Patient still appears very anxious and tremulous. One time order of Vistaril ordered per Dr. Devries.
[2016-11-19] MEDS ORDERED: HYDROXYZINE PAMOATE 25 MG CAPSULE PO ONE (14:16)
[2016-11-19 15:13] LABS: *AMPHETAMINE, URINE NEGATIVE (NEGATIVE); *BARBITURATE, URINE NEGATIVE (NEGATIVE); *CANNABINOID, URINE NEGATIVE (NEGATIVE); *COCCAINE, URINE NEGATIVE (NEGATIVE); *OPIATE, URINE NEGATIVE (NEGATIVE); *PHENCYCLIDINE SCREEN,URINE NEGATIVE (NEGATIVE)
[2016-11-19] MEDS: IBUPROFEN 400 MG TABLET PO PRN ×2 (15:35→20:39)
[2016-11-19] MEDS: ONDANSETRON ODT 4 MG TAB.RAPDIS SL PRN (15:35)
--- NOTE | 2016-11-19 15:36 | NUR ---
PRN MEDS PRN Ibuprofen given for h/a 5/10 on pain scale. Zofran given for c/o nausea. WIll reassess
[2016-11-19 16:00] VITALS: BP 147/81
--- NOTE | 2016-11-19 16:15 | NUR ---
PRN REASSESSMENT Patient states her headache is now 1/10 and she is no longer nauseated. Will continue to monitor
--- NOTE | 2016-11-19 18:27 | NUR ---
PRN MEDS PRN Vistaril given for anxiety. Will reassess
--- NOTE | 2016-11-19 18:28 | NUR ---
END OF SHIFT NOTE Patient scheduled for discharge tomorrow. UDS collected and sent to lab. No taper was ordered for this patient. Patient given PRN Clonidine, Vistaril x2 , Ibuprofen, and Zofran during shift. Last CIWA 4. Patient presents anxious. Patient states readiness for discharge. All needs have been met. Safety measures in place. Will pass shift report to oncoming nurse.
--- NOTE | 2016-11-19 19:10 | NUR ---
Start of shift note Received report from day shift nurse. Pt is a 56 yo female, A+Ox4, presenting to [facility] for ETOH dependence. Pt has Allergies to Erythromycin, is Full Code status, and on Gluten free/Lactose free diet. Pt is on Fall and Seizure precautions. Pt is on PRN medications and is due for discharge tomorrow. No s/s of distress noted at this time. Respirations even and unlabored. Will continue to monitor.
[2016-11-19 20:24] VITALS: BP 163/88
--- NOTE | 2016-11-19 20:41 | NUR ---
PRN Motrin and Clonidine PT c/o anxiety and headache 09/27 and requested for PRN Motrin and Clonidine. Medications given and tolerated well. Will reassess within 1 HR. will continue to monitor.
--- NOTE | 2016-11-19 21:38 | NUR ---
PRN Motrin and Clonidine Reassessment Medications effective. Pt expresses reduction in headache and anxiety. No s/s of ASE/distress noted at this time. Respirations even and unlabored. Will continue to monitor.
[2016-11-19] MEDS: MIRALAX 17 GM POWD.PACK PO PRN (21:39)
--- NOTE | 2016-11-19 21:39 | NUR ---
PRN Miralax Pt c/o constipation and requested for PRN Miralax. Medication given and tolerated well. Will reassess within 1 HR. Will continue to monitor.
--- NOTE | 2016-11-19 22:30 | NUR ---
PRN Miralax Reassessment Medication effective. Pt had BMx1. No s/s of ASE/distress noted at this time. Respirations even and unlabored. Will continue to monitor.
[2016-11-19] MEDS: TRAZODONE 100 MG TABLET PO SCH (23:39)
[2016-11-20 00:20] VITALS: BP 100/62
[2016-11-20 04:12] VITALS: BP 91/51
--- NOTE | 2016-11-20 06:56 | NUR ---
End of shift note Pt is a 56 yo female, A+Ox4, presenting to [facility] for ETOH dependence. Pt has Allergies to Erythromycin, is Full Code status, and on Gluten free/Lactose free diet. Pt is on Fall and Seizure precautions. Pt is on PRN medications and is due for discharge today. Pt was given PRN Motrin and Clonidine @2040 and PRN Miralax @2138. Pt slept for a total of 6 HRS. Last CIWA: 2 @0400. No s/s of distress noted at this time. Respirations even and unlabored. Will endorse to day shift nurse.
--- NOTE | 2016-11-20 07:05 | NUR ---
start of shift note: received pt from police shift commander nurse, pt is in stable condition at this time. no s/s of pain or discomfort. pt is admitted to [facility] for ETOH withdrawal/dependence. pt slept for 6 hrs and last ciwa 1. pt is set for discharge today. will assist pt in discharging and will continue to monitor pt for any changes
[2016-11-20] MEDS: DOCUSATE SODIUM 250 MG CAPSULE PO SCH (08:02)
[2016-11-20] MEDS: PATIENT MAY USE OWN MED- MD OK PO SCH (08:02)
[2016-11-20] MEDS: MULTIVITAMINS,THERAPEUTIC TABLET PO SCH (08:02)
[2016-11-20] MEDS: DULOXETINE 30 MG CAPSULE.DR PO SCH (08:02)
[2016-11-20] MEDS: FOLIC ACID 1 MG TABLET PO SCH (08:02)
[2016-11-20] MEDS: THIAMINE HCL 100 MG TABLET PO SCH (08:02)
[2016-11-20 08:58] VITALS: BP 128/71
[2016-11-20] MEDS: IBUPROFEN 400 MG TABLET PO PRN (09:43)
--- NOTE | 2016-11-20 09:43 | NUR ---
PRN administration: motrin, pt with complaints of headache. pain level 8/10
--- NOTE | 2016-11-20 11:00 | NUR ---
discharge note: pt left the unit in stable condition no s/s of pain or discomfort or any withdrawal symptoms.pt teaching was administered and pt verbalized understanding. all personal belongings were returned. V/S WNL.
[2016-11-20 14:09] LABS: HEPATITIS B SURFACE AG Negative (Negative)
== END 2016-11-20 11:00 | disposition home or self-care (01) | DRG 895 ==
LOC: SRC 14:19
PROVIDERS: ADMIT Internal Medicine; ATTEND Internal Medicine
PROC: HZ2ZZZZ Detoxification Services for Substance Abuse Treatment (ICD-10-PCS; principal; 2016-11-18)
PROC: HZ41ZZZ Group Counseling for Substance Abuse Treatment, Behavioral (ICD-10-PCS; 2016-11-19)
PROC: HZ31ZZZ Individual Counseling for Substance Abuse Treatment, Behavioral (ICD-10-PCS; 2016-11-19)
DX: F10.230 Alcohol dependence with withdrawal, uncomplicated (principal); F33.1 Major depressive disorder, recurrent, moderate; M79.7 Fibromyalgia; Z96.651 Presence of right artificial knee joint; Z87.892 Personal history of anaphylaxis; Z88.1 Allergy status to other antibiotic agents; K58.9 Irritable bowel syndrome, unspecified; K70.10 Alcoholic hepatitis without ascites; F41.9 Anxiety disorder, unspecified; R26.81 Unsteadiness on feet; F13.21 Sedative, hypnotic or anxiolytic dependence, in remission
CPT/HCPCS: 36415; 70030-TC; 80307; 83690; 83735; 84443; 84703; 85025; 86580; 86592; 86705; 86803; 87340; 87806; 93005; A4663; G0480; J3411; Q0162

== ENCOUNTER 2017-02-07 14:35 | Inpatient (IN) | payer BC, OTHER ==
[~2017-02-07] VITALS: Ht 160 cm; Wt 44.0 kg
[~2017-02-07 14:35] MED LIST changes: +CLON0.1T14 PO; -Gabapentin PO; +POLY17PO4 PO
[2017-02-07] MEDS ORDERED: ONDANSETRON ODT 4 MG TAB.RAPDIS SL PRN (15:15)
[2017-02-07] MEDS ORDERED: LORAZEPAM 2 MG/1 ML VIAL IM PRN (15:15)
[2017-02-07] MEDS ORDERED: diphenhydrAMINE 50 MG CAPSULE PO PRN (15:15)
[2017-02-07] MEDS ORDERED: THIAMINE HCL 200 MG/2 ML VIAL IM ONE (15:15)
[2017-02-07] MEDS ORDERED: LORAZEPAM 1 MG TABLET PO PRN (15:15)
[2017-02-07] MEDS ORDERED: ONDANSETRON 4 MG/2 ML VIAL IM PRN (15:15)
[2017-02-07] MEDS ORDERED: LOPERAMIDE HCL 2 MG CAPSULE PO PRN ×2 (15:15)
[2017-02-07] MEDS ORDERED: ACETAMINOPHEN 325 MG TABLET PO PRN (15:15)
[2017-02-07] MEDS ORDERED: MAG HYDROX/AL HYDROX/SIMETH 30 ML LIQUID UDC PO PRN (15:15)
[2017-02-07] MEDS ORDERED: IBUPROFEN 400 MG TABLET PO PRN (15:15)
[2017-02-07 15:20] VITALS: BP 137/97
--- NOTE | 2017-02-07 15:20 | NUR ---
PRE-ASSESSMENT NOTE Pt is a 56 year old female admitted for ETOH withdrawals. Pt reports drinking 12 pack beer daily. V/S are as follows: B/P is 137/97, RR 14 even and unlabored, T: 97.8, heart rate 87, SpO2 is 97% room air. Pt is alert and oriented x4, pt is intoxicated at this time, and reports last drink was at 1300, and she finished a 12-pack of beer. Allergic to erythromycin base. Pt to continue with assessment when on unit.
--- NOTE | 2017-02-07 15:35 | NUR ---
ADMISSION NOTE VS: BP: 137/97 HR:87, SpO2: 99% RA, RR: 16, Temp: 98.2 Pain:0/10 Height: 5'3 Weight: 97 LBS Allergies: Erythromycin base Pt is a 56 y/o male admitted to [facility] on 02/07/17 at 1526. Pt is under the care of Dr. Nelson for ETOH withdrawals. Patient also reports using Ativan 0.5mg PO once daily for the past 2 weeks and Fentanyl patch 25mcg for 2 weeks. Pt denies suicidal and homicidal ideations at this time. Pt denies Chest Pain and SOB. Pt did not bring any medications with him and reports taking Trazodone 200mg HS for sleep. Pt reports living with her mom. Upon assessment pt's skin integrity is intact. COWS 8 upon admission for withdrawal symptoms. NKA, A/Ox4 and able to answer questions necessary for the admission process. Pt is Full Code. VS WNL, Regular Diet. Pt reports Hx of anxiety, and insomnia. Pt denies having any seizures in the past. Pt reports PCP as Dr. Glenn Baldwin in [place]. Breathing is even and unlabored, SpO2 is 98% on RA. Pt ambulates with a steady gait. Pt reports regular daily BM. Urine has been collected for UDS. All needs have been met. Pt has been oriented to the room and the unit. All safety measures in place per hospital policy. Bed in lowest position, side rails up x2 and padded, call-light within reach. Will continue to monitor. Substance Abuse: ETOH: 12-pack beer (12oz) daily for the past 2 weeks Ativan 0.5mg daily for the past 2 weeks Fentanyl patch 25 mcg for the past 2 weeks
[2017-02-07 15:44] LABS: *URINE HCG, QUAL NEGATIVE (NEGATIVE)
[2017-02-07 15:50] LABS: BASOPHILS % (AUTO) 0.4 % (0.0-2.0); EOSINOPHILS % (AUTO) 0.3 % (0.0-7.0); HEMOGLOBIN 11.6 G/DL (12.0-16.0); LYMPHOCYTES # (AUTO) 1.3 K/UL (0.8-4.8); LYMPHOCYTES % (AUTO) 17.3 % (20.5-51.5); MEAN CORPUSCULAR HEMOGLOBIN 29.2 UUG (27.0-31.0); MEAN CORPUSCULAR HGB CONC 33 g/dL (32.0-37.0); MEAN CORPUSCULAR VOLUME 88.5 FL (81.0-99.0); MONOCYTES # (AUTO) 0.3 K/UL (0.1-1.30); MONOCYTES % (AUTO) 4.2 % (0.0-11.0); NEUTROPHILS # (AUTO) 5.9 K/UL (1.8-8.9); NEUTROPHILS % (AUTO) 77.8 % (38.5-71.5); PLATELET COUNT (AUTO) 272 K/UL (150-450); RED BLOOD CELL COUNT(AUTO) 3.96 MIL/UL (4.2-5.4); WHITE BLOOD COUNT (AUTO) 7.5 K/UL (4.0-11.2)
[2017-02-07 15:51] LABS: BILIRUBIN,TOTAL 0.6 mg/dL (0.2-1.0); CREATININE 0.6 mg/dL (0.6-1.3); MAGNESIUM 1.6 mg/dL (1.8-2.4); POTASSIUM 3.6 mmol/L (3.5-5.1); TOTAL PROTEIN, SERUM 6.8 g/dL (6.4-8.2)
[2017-02-07 15:56] LABS: *AMPHETAMINE, URINE NEGATIVE (NEGATIVE); *BARBITURATE, URINE NEGATIVE (NEGATIVE); *CANNABINOID, URINE NEGATIVE (NEGATIVE); *COCCAINE, URINE NEGATIVE (NEGATIVE); *OPIATE, URINE NEGATIVE (NEGATIVE); *PHENCYCLIDINE SCREEN,URINE NEGATIVE (NEGATIVE)
--- NOTE | 2017-02-07 16:16 | NUR ---
Client told therapist she is ready to "bolt" out of [facility]. Client pressed down button on elevator to try to go outside on her own. Therapist notified nursing staff.
[2017-02-07] MEDS: CLONIDINE HCL 0.1 MG TABLET PO PRN ×2 (16:23→23:35)
[2017-02-07] MEDS: HYDROXYZINE PAMOATE 25 MG CAPSULE PO PRN ×2 (16:43→22:49)
--- NOTE | 2017-02-07 16:43 | NUR ---
PRN CLONIDINE AND VISTARIL Pt received PRN clonidine and Vistaril for increased anxiety and restlessness. Will reassess.
[2017-02-07 16:58] VITALS: BP 121/81
--- NOTE | 2017-02-07 17:43 | NUR ---
REASSESSMENT Medications were not effective, pt still reports anxiety and is agitated and restless. CIWA is 15, Dr. Nelson is notified and aware, and said to contact psychiatrist at this time.
[2017-02-07] MEDS: IV NORMAL SALINE 1,000 ML IV SCH (17:55)
[2017-02-07] MEDS ORDERED: QUETIAPINE FUMARATE 100 MG TABLET PO ONE (18:45)
[2017-02-07] MEDS: MAGNESIUM SULFATE/D5W 100 ML IV SCH ×2 (18:47→21:51)
--- NOTE | 2017-02-07 18:47 | NUR ---
PRN SEROQUEL Pt received PRN Seroquel for increased agitation and anxiety. Medication ordered by Dr. Penny. Education provided, night nurse to reassess.
--- NOTE | 2017-02-07 19:36 | NUR ---
END OF SHIFT Endorsed to night nurse. 56 year old female admitted for ETOH withdrawals. Pt alcohol level was 0.30 % at time of admission. Pt V/S remain WNL. Seroquel 100mg one time order administered, prn vistaril and clonidine administered. IV was started on right FA #22 gauge with 0.9 NS running at 150 ml per hr. Magnesium is being replaced by IV mag total of 2 gm. Safety measures in place, night nurse to reassess.
--- NOTE | 2017-02-07 19:45 | NUR ---
Start of Shift Pt is a 56 year old female admitted on 02/07/2017 for ETOH. Pt reports consuming 12 pck beer/daily. Also reported use of Fentanyl 2.5 mcg patch and Ativan 0.5mg. PMH: Anxiety and Insomnia. Allergies to erythromycin base, Fall/seizure precautions - no hx of seizure, regular diet and full code. Upon assessment, pt presents restless in bed, is agitated, is emotional, reports feeling anxious, skin flushed/clammy, reports chills. 22 gauge with 0.9 NS running at 150 ml per hr. Magnesium is being replaced by IV mag total of 2 gm. Safety measures in place. Safety measures in place, call light within reach, side rails up x2, bed locked and in low position. Will continue to monitor.
--- NOTE | 2017-02-07 19:47 | NUR ---
Seroquel Reassessment Upon reassessment of Seroquel, pt states, "it only helped for a short while". Pt reports continuously feeling anxious. Safety measures in place. Will continue to monitor.
[2017-02-07 20:00] VITALS: BP 118/76
--- NOTE | 2017-02-07 22:49 | NUR ---
PRN Administration Benadryl 50mg PRN and Vistaril 25mg PRN administered for difficulty sleeping and anxiety. Safety measures in place. Will continue to monitor.
--- NOTE | 2017-02-07 23:35 | NUR ---
PRN Administration Clonidine 0.1mg PRN administered for restlessness, agitation, unable to sit still. Safety measures in place. Will continue to monitor.
[2017-02-08] VITALS: BP 141/82
--- NOTE | 2017-02-08 00:35 | NUR ---
PRN Reassessment Pt is sleeping. Safety measures in place. Will continue to monitor. BP 141/82, pulse 96, resp 16, SpO2 98% room air, Temp 98 CIWA deferred d/t pt sleeping - to assess while pt is awake as ordered. Safety measures in place. Will continue to monitor.
[2017-02-08] MEDS: IV NORMAL SALINE 1,000 ML IV SCH ×3 (00:47→13:15)
[2017-02-08 01:12] LABS: CREATININE 0.6 mg/dL (0.6-1.3); POTASSIUM 3.4 mmol/L (3.5-5.1)
--- NOTE | 2017-02-08 01:27 | NUR ---
PRN Administration Pt requests relief of muscle aches. Robaxin 750mg x1 administered. safety measures in place. will continue to monitor.
[2017-02-08] MEDS ORDERED: METHOCARBAMOL 750 MG TABLET PO ONE (01:30)
[2017-02-08] MEDS ORDERED: METHOCARBAMOL 750 MG TABLET ONE (01:37)
[2017-02-08] MEDS: LORAZEPAM 1 MG TABLET PO PRN ×2 (01:49→08:40)
--- NOTE | 2017-02-08 01:49 | NUR ---
PRN Administration CIWA 14 - pt is anxious, agitated, emotional, visible tremors, restlessness, reports body aches with chills, skin clammy/flushed. Ativan 1mg PRN administered. Safety measures in place. Will continue to monitor.
--- NOTE | 2017-02-08 02:50 | NUR ---
PRN Reassessment Upon assessment, pt is in bed, sleeping in comfort position - respirations even/unlabored. no reports of distress. Safety measures in place. will continue to monitor.
[2017-02-08 04:00] VITALS: BP 114/76
--- NOTE | 2017-02-08 04:00 | NUR ---
Vital Signs/CIWA Reassessment BP 114/76, pulse 74, resp 16, SpO2 98% room air, temp 97.6 CIWA 10 - pt states she feels "steadier and less anxious". Motrin 400mg PRN administered for headache, rated 5/10. Safety measures in place. Will continue to monitor.
[2017-02-08] MEDS: HYDROXYZINE PAMOATE 25 MG CAPSULE PO PRN ×2 (05:00→11:12)
--- NOTE | 2017-02-08 05:00 | NUR ---
PRN Reassessment/Administration Pt reports subsiding headache, rated 2-3/10. Requests aid for anxiety. Vistaril 25mg PRN administered. Safety measures in place. Will continue to monitor.
--- NOTE | 2017-02-08 06:00 | NUR ---
PRN Reassessment/Administration Pt reports, "I still feel so anxious!". Pt is unable to sit still, is restless and noted to be agitated. Clonidine 0.1mg PRN administered. Safety measures in place. Will continue to monitor.
[2017-02-08 06:06] LABS: HEPATITIS B SURFACE AG Negative (Negative)
[2017-02-08] MEDS: CLONIDINE HCL 0.1 MG TABLET PO PRN ×2 (06:07→16:44)
--- NOTE | 2017-02-08 06:55 | NUR ---
PRN Reassessment Pt is noted in room, watching television. Will endorse onto day shift nurse to monitor care.
--- NOTE | 2017-02-08 07:05 | NUR ---
End of Shift Pt is a 56 year old female admitted on 02/07/2017 for ETOH. Pt reports consuming 12 pck beer/daily. Also reported use of Fentanyl 2.5 mcg patch and Ativan 0.5mg. PMH: Anxiety and Insomnia. Allergies to erythromycin base, Fall/seizure precautions - no hx of seizure, regular diet and full code. During shift, pt presented restlessness, agitation, emotional distress, reported feeling anxious, skin flushed/clammy, reports chills - Benadryl 50mg PRN, Vistaril 25mg PRN x2, Clonidine 0.1mg x2 and Robaxin 750mg PRN administered, mildly effective, as reported per pt and noted in separate note. At 0149, CIWA 14 - Ativan 1mg PRN administered, assessment score decreased to CIWA 10. Motrin 400mg PRN administered for headache, effective. 22 gauge with 0.9 NS running at 150 ml per hr. Magnesium replaced by IV mag total of 2 gm - completed. Pt slept for 40 minutes, Intake of 500 ml PO, voids x1 and stool x0. Safety measures in place, call light within reach, side rails up x2, bed locked and in low position. Endorsed to day shift nurse.
[2017-02-08 08:00] VITALS: BP 130/77
--- NOTE | 2017-02-08 08:05 | NUR ---
START OF SHIFT Received patient this morning roaming hallways and asking for medication. She states anxiety and shaking. Patient has 22 g IV to right forearm. Patient has NS ordered to run @ 150 ml/hr. Patient given PRN Benadryl, Ativan, Vistarilx2, Clonidinex2, and Motrin per night nurse. CARA 14 at 0800 this AM. Vital signs stable. Encouraged patient to increase fluid intake. Patient denies S/I or H/I. Seizure precuations in place. Fall precautions in place. IV pole out of walkway. Will monitor closely and offer help.
[2017-02-08] MEDS: MULTIVITAMINS,THERAPEUTIC TABLET PO SCH (08:40)
[2017-02-08] MEDS: THIAMINE HCL 100 MG TABLET PO SCH (08:40)
[2017-02-08] MEDS: FOLIC ACID 1 MG TABLET PO SCH (08:40)
--- NOTE | 2017-02-08 08:40 | NUR ---
PRN MEDICATION 1 MG ATIVAN GIVEN FOR CIWA 14. WILL REASSESS
[2017-02-08] MEDS ORDERED: TUBERCULIN,PURIF.PROT.DERIV. 5 TU/0.1 ML TEST ID ONE (09:00)
--- NOTE | 2017-02-08 09:47 | NUR ---
PRN REASSESSMENT CIWA decreased to 11. patient still states feeling anxious and uncomfortable. MD ordered 2 mg ativan. will monitor
[2017-02-08] MEDS: LORAZEPAM 1 MG TABLET PO SCH ×3 (09:48→20:47)
[2017-02-08 10:38] LABS: BILIRUBIN,DIRECT 0.2 mg/dL (0.0-0.2); BILIRUBIN,TOTAL 0.9 mg/dL (0.2-1.0); CREATININE 0.7 mg/dL (0.6-1.3); MAGNESIUM 2.3 mg/dL (1.8-2.4); PHOSPHOROUS 2.6 mg/dL (2.5-4.9); POTASSIUM 3.1 mmol/L (3.5-5.1); TOTAL PROTEIN, SERUM 7.3 g/dL (6.4-8.2)
[2017-02-08 10:43] LABS: BASOPHILS % (AUTO) 0.3 % (0.0-2.0); EOSINOPHILS % (AUTO) 0.5 % (0.0-7.0); HEMATOCRIT 35.2 % (37-47); HEMOGLOBIN 12.2 G/DL (12.0-16.0); LYMPHOCYTES # (AUTO) 0.5 K/UL (0.8-4.8); LYMPHOCYTES % (AUTO) 7.5 % (20.5-51.5); MEAN CORPUSCULAR HEMOGLOBIN 30.8 UUG (27.0-31.0); MEAN CORPUSCULAR HGB CONC 35 g/dL (32.0-37.0); MEAN CORPUSCULAR VOLUME 89.1 FL (81.0-99.0); MONOCYTES # (AUTO) 0.7 K/UL (0.1-1.30); MONOCYTES % (AUTO) 11.2 % (0.0-11.0); NEUTROPHILS # (AUTO) 5.1 K/UL (1.8-8.9); NEUTROPHILS % (AUTO) 80.5 % (38.5-71.5); PLATELET COUNT (AUTO) 277 K/UL (150-450); RED BLOOD CELL COUNT(AUTO) 3.96 MIL/UL (4.2-5.4); WHITE BLOOD COUNT (AUTO) 6.3 K/UL (4.0-11.2)
--- NOTE | 2017-02-08 11:15 | NUR ---
PRN MEDICATION VISTARIL GIVEN FOR C/O ANXIETY. PT APPEARS ANXIOUS AND TREMULOUS. WILL MONITOR.
--- NOTE | 2017-02-08 11:43 | NUR ---
0630 BAG OF NS NON ADMINISTERED D/T NO IV ACCESS. PREVIOUS BAG STILL INFUSING. PATIENT NON COMPLIANT AND FREQUENTLY UNHOOKS INFUSION.
[2017-02-08 12:00] VITALS: BP 123/80
--- NOTE | 2017-02-08 12:00 | NUR ---
PRN REASSESSMENT WHEN ASKED IF PATIENT FEELS LESS ANXIOUS SHE REPLIES, "I THINK I FEEL A LITTLE BETTER" medication effective. will monitor.
[2017-02-08] MEDS ORDERED: POTASSIUM CHLORIDE 20 MEQ TAB.PRT.SR PO ONE (14:00)
--- NOTE | 2017-02-08 15:31 | NUR ---
IV LINE DC'D PER DR ORDER. PATIENT TOLERATING FLUIDS. IV TIP INTACT. NO REDNESS OR SWELLING NOTED.
[2017-02-08 16:00] VITALS: BP 140/89
--- NOTE | 2017-02-08 16:44 | NUR ---
PRN MEDICATION CLONIDINE GIVEN FOR C/O ANXIETY. WILL MONITOR
--- NOTE | 2017-02-08 17:30 | NUR ---
PRN REASSESSMENT Patient reports slight improvement in anxiety. Will monitor.
--- NOTE | 2017-02-08 18:32 | NUR ---
END OF SHIFT NOTE Patient started on Ativan taper and tolerating well. Patient reports constant anxiety and shakiness during shift. PRN Ativan, Vistaril, and Clonidine given during shift. IV line DC'd as ordered. Patient did not attend groups or activities. She socialized with peers and increased fluids as tolerated. Vital signs stable. Last CIWA 9. All needs met. All safety measures in place. Will endorse to night nurse.
[2017-02-08] MEDS ORDERED: METHOCARBAMOL 750 MG TABLET PO PRN (19:00)
--- NOTE | 2017-02-08 19:30 | NUR ---
START OF SHIFT NOTE. RECEIVED IN HALLWAY A/OX4, PLAN OF CARE DISCUSSED, PT UNDERSTOOD. C/O CONSTIPATION, MIRALAX GIVEN ORDERED. PT REQUESTED TO FOR OUT FOR A SMOKE. WILL CONTINUE TO MONITOR FOR COMFORT AND SAFETY.
[2017-02-08 20:00] VITALS: BP 148/88
[2017-02-08] MEDS: DULOXETINE 30 MG CAPSULE.DR PO SCH (20:47)
[2017-02-08] MEDS ORDERED: [UNRECOGNIZED DRUG - OTHER] PO SCH (21:00)
[2017-02-08] MEDS ORDERED: DULOXETINE HCL PO SCH (21:00)
[2017-02-08] MEDS ORDERED: DULOXETINE 60 MG CAPSULE.DR PO SCH ×2 (21:00)
[2017-02-08] MEDS ORDERED: IBUPROFEN 400 MG TABLET PO PRN (21:30)
[2017-02-08] MEDS ORDERED: ACETAMINOPHEN ES 500 MG TABLET PO PRN (21:30)
[2017-02-08] MEDS: TRAZODONE 100 MG TABLET PO SCH (21:44)
[2017-02-08] MEDS ORDERED: LORAZEPAM 1 MG TABLET PO PRN ×2 (21:45)
[2017-02-08] MEDS: MIRALAX 17 GM POWD.PACK PO PRN (21:56)
[2017-02-09] VITALS: BP_SYST 103; BP_SYST 111; BP_DIAS 79; BP_DIAS 88
[2017-02-09] MEDS: HYDROXYZINE PAMOATE 25 MG CAPSULE PO PRN (03:55)
--- NOTE | 2017-02-09 03:55 | NUR ---
PRN VISTARIL 25 MG 1 CAP PO ADMINISTRATION. Patient c/o increased anxiety, and asked aid. PRN Vistaril 25 mg 1 cap PO administrated for anxiety with full glass of water as ordered. Patient tolerated well. All needs met. Safety measures on place. Call light within reach, bed in lowest position and locked, padded rails up bilaterally rails up bilaterally. Will continue to monitor closely.
[2017-02-09 04:00] VITALS: BP 116/85
--- NOTE | 2017-02-09 04:55 | NUR ---
RE-ASSESSMENT Patient is sleeping. Respirations even and unlabored. RR:14. PRN vistaril po was effective. All needs met. Safety measures on place. Call light within reach, bed in lowest position and locked, padded rails up bilaterally rails up bilaterally. Will continue to monitor closely.
--- NOTE | 2017-02-09 06:37 | NUR ---
Pt is a 56 year old female admitted on 02/07/2017 for ETOH. Pt reports consuming 12 pck beer/daily. Also reported use of Fentanyl 2.5 mcg patch and Ativan 0.5mg. PMH: Anxiety and Insomnia. Allergies to erythromycin base, Fall/seizure precautions - no hx of seizure, regular diet and full code. During shift, pt presented restlessness, agitation, emotional distress, reported feeling anxious, skin flushed/clammy, reports chills, Vistaril 25mg PRN administered with good effect. Call light is within reach. Will continue to monitor for comfort and safety.
[2017-02-09 08:00] VITALS: BP 120/78
--- NOTE | 2017-02-09 08:20 | NUR ---
START OF SHIFT: PT CAME TO NURSES STATION AND STATED THAT SHE HAD TERRIBLE NIGHT SWEATS LAST NIGHT AND THAT SHE FEELS EXTREMELY ANXIOUS. SHE IS TREMULOUS AND PRESENTS WITH ANXIOUS MOOD AND CONGRUENT AFFECT. ATIVAN TAPER IN PROGRESS. CIWA 15. PRN CLONIDINE GIVEN TO ASSIST IN MANAGING S/S OF W/D. ENCOURAGED INCREASED FLUIDS TO ASSIST IN FACILITATING DETOX PROCESS. WILL CONTINUE TO MONITOR AND OFFER SUPPORT.
[2017-02-09] MEDS: FOLIC ACID 1 MG TABLET PO SCH (08:28)
[2017-02-09] MEDS: CLONIDINE HCL 0.1 MG TABLET PO PRN ×3 (08:28→20:49)
[2017-02-09] MEDS: THIAMINE HCL 100 MG TABLET PO SCH (08:28)
[2017-02-09] MEDS: MULTIVITAMINS,THERAPEUTIC TABLET PO SCH (08:28)
[2017-02-09] MEDS ORDERED: LORAZEPAM 1 MG TABLET PO SCH (09:00)
[2017-02-09] MEDS ORDERED: GABAPENTIN 300 MG CAPSULE PO SCH ×2 (09:00→21:00)
[2017-02-09] MEDS: LIDOCAINE 5% PATCH TD SCH (10:44)
[2017-02-09] MEDS ORDERED: LORAZEPAM 1 MG TABLET PO ONE (11:15)
[2017-02-09] MEDS ORDERED: LORAZEPAM 1 MG TABLET PO PRN ×2 (11:15)
[2017-02-09] MEDS: SENNOSIDES 1 TABLET PO SCH ×2 (11:30→20:49)
[2017-02-09 12:00] VITALS: BP 135/87
--- NOTE | 2017-02-09 12:30 | NUR ---
PT HAS BEEN EATING VERY LITTLE AND AND HAS BEEN GETTING MIRALAX NIGHTLY. STOMACH NON DISTENDED. BS X4. NO S/S OF CONSTIPATION. Addendum: 02/09/17 at 1857 by PETER FRANCO RN [place] DAVIDSON
[2017-02-09] MEDS: HYDROXYZINE PAMOATE 25 MG CAPSULE PO SCH ×3 (12:51→23:47)
[2017-02-09] MEDS: GABAPENTIN 300 MG CAPSULE PO SCH ×2 (14:23→20:50)
[2017-02-09] MEDS: LORAZEPAM 1 MG TABLET PO SCH ×2 (14:23→20:48)
[2017-02-09 16:00] VITALS: BP 107/75
[2017-02-09] MEDS: MIRALAX 17 GM POWD.PACK PO PRN (18:12)
--- NOTE | 2017-02-09 18:57 | NUR ---
END OF SHIFT: PT CONTINUE ON ATIVAN TAPER. CLONIDINE PRN GIVEN AND EFFECTIVE FOR SEVERE ANXIETY THIS AM AND EFFECTIVE. PRN CLONIDINE GIVEN LATE AFTERNOON AND EFFECTIVE. SHE C/O ANXIETY INTERMITTENTLY DURING SHIFT. SHE HAS A POOR APPETITE AND ADMITTED TO HAVING AN EATING DISORDER AND SHE RESTRICTS FOOD. SHE STATES SHE IS DEPENDENT ON PRESCRIPTION LAXATIVES AT HOME. OFFERED SUPPORT. ENCOURAGED INCREASED FLUIDS AND FIBER SHE STATES SHE DID NOT MOVE HER BOWELS TODAY. ADMINISTERED MIRALAX THIS EVENING. WILL PASS SHIFT REPORT TO [facility] NIGHT NURSE. Addendum: 02/09/17 at 1906 by PETER FRANCO RN DAKOTA Bojorquez
--- NOTE | 2017-02-09 19:15 | NUR ---
Start of Shift Note: Received pt from day shift nurse. Patient is a 56 y/o female admitted on 02/07/17 for ETOH & Benzo dependence. Patient reported with medical history of Anxiety & Insomnia. No seizure history noted. Patient is on a regular diet with allergies to Erythromycin. Full Code status. Patient is on a 5-day Ativan taper and tolerating well. Patient is alert & oriented x4. No shortness of breath noted. Respiration even & unlabored. Abdomen soft & non-distended. No nausea/vomiting noted. Bilateral hand tremors noted. Patient complains of moderate anxiety and mild headache. No hallucinations noted. Safety measures in place. Bed locked in locked in lowest position. Both side rails up. Call light within pts reach. Will continue to monitor patient.
[2017-02-09 20:00] VITALS: BP 116/84
--- NOTE | 2017-02-09 20:49 | NUR ---
PRN Clonidine Patient appears anxious. PRN Clonidine 0.1mg administered as ordered. vitals WNL. Will reassess in 1 hour. WIll continue to monitor patient.
[2017-02-09] MEDS: DULOXETINE 30 MG CAPSULE.DR PO SCH (20:50)
--- NOTE | 2017-02-09 21:49 | NUR ---
PRN Reassessment Patient verbalized decreased in anxiety. Patient appears calm and comfortable in bed. No s/s of distress noted. Will continue to monitor patient.
[2017-02-09] MEDS: TRAZODONE 100 MG TABLET PO SCH (23:47)
[2017-02-10] VITALS: BP 111/79
[2017-02-10 04:00] VITALS: BP 91/62
[2017-02-10] MEDS: HYDROXYZINE PAMOATE 25 MG CAPSULE PO SCH ×4 (06:29→23:11)
--- NOTE | 2017-02-10 07:12 | NUR ---
End of Shift Note: Patient had an uneventful night. Patient remained stable with no s/s of distress noted. Vitals remains WNL. Patient remained compliant with treatment plan. Patient is on a Ativan taper she is tolerating well. Last Ciwa is 4. Pt was given PRN Clonidine for anxiety and was effective. Patient still asleep at this time. Pt slept well throughout the night with a total of 8 hours. Pt consumed 2710 ml of fluids. Voided 3x with no bowel movement. All needs attended & met. Safety measures in place. Will endorse pt to day shift nurse.
[2017-02-10 08:00] VITALS: BP 100/66
--- NOTE | 2017-02-10 08:15 | NUR ---
START OF SHIFT: RECEIVED PT A/O X 4. SHE C/O ANXIETY STATES SHE FEELS SHAKY. TREMORS NOTED TO HANDS. SHE REPORTS OK SLEEP LAST NIGHT.. ATIVAN TAPER IN PROGRESS. CIWA 4. MEDICATED ORDERED. ENCOURAGED INCREASED FLUIDS. ENCOURAGED GROUP ATTENDANCE TO IMPROVE COPING SKILLS AND PREVENT RELAPSE. WILL CONTINUE TO MONITOR AND MANAGE S/S OF W/D.
[2017-02-10] MEDS ORDERED: LORAZEPAM 1 MG TABLET PO SCH (09:00)
[2017-02-10] MEDS: LIDOCAINE 5% PATCH TD SCH (09:08)
[2017-02-10] MEDS: FOLIC ACID 1 MG TABLET PO SCH (09:08)
[2017-02-10] MEDS: THIAMINE HCL 100 MG TABLET PO SCH (09:08)
[2017-02-10] MEDS: MULTIVITAMINS,THERAPEUTIC TABLET PO SCH (09:08)
[2017-02-10] MEDS: LORAZEPAM 1 MG TABLET PO SCH ×4 (09:08→20:50)
[2017-02-10] MEDS: GABAPENTIN 300 MG CAPSULE PO SCH ×3 (09:08→20:50)
--- NOTE | 2017-02-10 11:05 | NUR ---
PRN CLONIDINE GIVEN FOR REPORTED ANXIETY AND SWEATS. WILL MONITOR EFFECTIVENESS.
[2017-02-10] MEDS: CLONIDINE HCL 0.1 MG TABLET PO PRN ×2 (11:07→17:34)
--- NOTE | 2017-02-10 11:51 | NUR ---
Therapist prompted client about group times. Client stated she would attend all groups today.
[2017-02-10 12:00] VITALS: BP 129/85
--- NOTE | 2017-02-10 12:05 | NUR ---
PT STATES CLONIDINE WAS EFFECTIVE.
--- NOTE | 2017-02-10 13:50 | NUR ---
PRN ADMINISTRATION: PT WITH COMPLAINTS OF NAUSEA, PRN 4 MG WAS ADMINISTERED, WILL RE-ASSESS EFFECTIVENESS OF MEDICATION
--- NOTE | 2017-02-10 14:50 | NUR ---
PT STATES ZOFRAN WAS EFFECTIVE. SHE STATES NAUSEA HAS SUBSIDED.
[2017-02-10 16:00] VITALS: BP 133/80
[2017-02-10] MEDS: MIRALAX 17 GM POWD.PACK PO PRN (17:34)
--- NOTE | 2017-02-10 17:35 | NUR ---
PRN MIRALAX GIVEN FOR REPORTED CONSTIPATION. PRN CLONIDINE GIVEN FOR REPORTED ANXIETY AND SWEATS.
--- NOTE | 2017-02-10 18:35 | NUR ---
PT STATES CLONIDINE WAS EFFECTIVE. SHE STATES SHE STILL HASN'T MOVED HER BOWELS. DISCUSSED ED AND HER DEPENDENCE ON LAXATIVES.OFFERED SUPPORT.
--- NOTE | 2017-02-10 19:03 | NUR ---
END OF SHIFT: PT CONTINUES ON ATIVAN TAPER. LAST CIWA 8. SHE C/O ANXIETY INTERMITTENTLY AND IT SOMETIMES BECOME SEVERE AT TIMES LAST CIWA 8. PRN CLONIDINE GIVEN X 2 FOR SEVERE ANXIETY.SHE C/O NAUSEA AND RECEIVED PRN ZOFRAN WHICH WAS EFFECTIVE. PRN MIRALAX GIVEN FOR REPORTED CONSTIPATION X 3 DAYS. VISTARIL SCHEDULED AND MILDLY EFFECTIVE. SHE ATTENDED SOME GROUPS . SHE IS COMPLIANT WITH MEDS AND INCREASED FLUIDS. WILL PASS SHIFT REPORT TO ONCOMING NIGHT NURSE.
--- NOTE | 2017-02-10 19:40 | NUR ---
323 Start of Shift Note: Received pt from day shift nurse. 56 y/o female admitted on 02/07/17 for ETOH & Benzo dependence. Patient reported with medical history of Anxiety & Insomnia. No seizure history noted. Patient is on a regular diet with allergies to Erythromycin. Full Code status. Patient is on a 5-day Ativan taper and tolerating well. Patient is alert & oriented x4. No shortness of breath noted. Respiration even & unlabored. Abdomen soft & non-distended. No nausea/vomiting noted. Bilateral hand tremors noted. Patient complains of moderate anxiety and mild headache and right hip pain 5/10. No hallucinations noted. Safety measures in place. Bed locked in locked in lowest position. Both side rails up. Call light within pts reach. Will continue to monitor patient.
[2017-02-10 20:00] VITALS: BP 109/68
[2017-02-10] MEDS: SENNOSIDES 1 TABLET PO SCH (20:50)
[2017-02-10] MEDS: DULOXETINE 30 MG CAPSULE.DR PO SCH (20:50)
--- NOTE | 2017-02-10 20:53 | NUR ---
Px complained of Right hip pain and headache 5/10, Ibuprofen 600mg PO given as PRN meds.
[2017-02-10] MEDS: TRAZODONE 100 MG TABLET PO SCH (23:10)
--- NOTE | 2017-02-10 23:11 | NUR ---
Trazodone 100mg 2 tabs given PO at around 11PM per px's request
[2017-02-11] VITALS: BP 101/76
[2017-02-11 04:05] VITALS: BP 106/77
[2017-02-11] MEDS: CLONIDINE HCL 0.1 MG TABLET PO PRN (04:08)
[2017-02-11] MEDS: HYDROXYZINE PAMOATE 25 MG CAPSULE PO SCH (06:24)
--- NOTE | 2017-02-11 07:19 | NUR ---
323 End of Shift Note: Patient remained stable with no s/s of distress noted. Vitals remains WNL. Patient remained compliant with treatment plan. Patient is on a Ativan taper she is tolerating well. Complained of right hip pain and headache, Ibuprofen 600mg PO given as PRN meds. Verbalized relief from pain. Pt was given PRN Clonidine for anxiety and was effective. Pt slept well throughout the night with a total of 8 hours. Pt consumed 1200 ml of fluids. Voided 2x with no bowel movement. All needs attended & met. Safety measures in place. . Last Ciwa is 7. Will endorse pt to day shift nurse.
[2017-02-11 07:45] LABS: BASOPHILS % (AUTO) 0.7 % (0.0-2.0); EOSINOPHILS # (AUTO) 0.1 K/uL (0.0-0.7); EOSINOPHILS % (AUTO) 1.9 % (0.0-7.0); HEMOGLOBIN 11.7 G/DL (12.0-16.0); LYMPHOCYTES # (AUTO) 1.4 K/UL (0.8-4.8); MEAN CORPUSCULAR HEMOGLOBIN 30.6 UUG (27.0-31.0); MEAN CORPUSCULAR HGB CONC 33 g/dL (32.0-37.0); MEAN CORPUSCULAR VOLUME 91.6 FL (81.0-99.0); MONOCYTES # (AUTO) 0.7 K/UL (0.1-1.30); MONOCYTES % (AUTO) 16.1 % (0.0-11.0); NEUTROPHILS # (AUTO) 2.3 K/UL (1.8-8.9); NEUTROPHILS % (AUTO) 50.3 % (38.5-71.5); PLATELET COUNT (AUTO) 244 K/UL (150-450); RED BLOOD CELL COUNT(AUTO) 3.82 MIL/UL (4.2-5.4); WHITE BLOOD COUNT (AUTO) 4.5 K/UL (4.0-11.2)
--- NOTE | 2017-02-11 07:50 | NUR ---
START OF SHIFT Rcvd endorsement from ongoing nurse, client is in room, a/o x4, she presents with anxious mood, flat affect, moist skin, flushed face. She reports restless legs, abdominal cramps and chills, no nausea or diarrhea. She denies any SI/HI. Encouraged client to increase fluid intake to facilitate detox. Encourage client to attend group therapy for skills to maintain sobriety. Client is a 56 yo female admitted for withdrawal from alcohol and benzodiazepines. She is on 5 day Ativan taper, tolerating well (day 4th). Last CIWA @ 0400. She reports allergy to erythromycin, full code, regular diet. PRN Motrin for body aches, Clonidine for agitation/irritability, noted effective. Client slept 8 hrs. Client denies any history of withdrawal-induced seizure. She is on seizure precautions. Call light within reach. Side rails up x2/padded, bed locked and in low position.
[2017-02-11 08:18] LABS: CREATININE 0.6 mg/dL (0.6-1.3); MAGNESIUM 1.9 mg/dL (1.8-2.4); PHOSPHOROUS 4.5 mg/dL (2.5-4.9); POTASSIUM 3.8 mmol/L (3.5-5.1)
[2017-02-11 08:20] LABS: EOSINOPHILS % (MANUAL) 4 % (0-8); LYMPHOCYTES % (MANUAL) 28 % (20-40); MONOCYTES % (MANUAL) 9 % (2-10); NEUTROPHILS % (MANUAL) 59 % (42-75)
[2017-02-11 08:55] VITALS: BP 98/70
[2017-02-11] MEDS ORDERED: LORAZEPAM 1 MG TABLET PO SCH (09:00)
[2017-02-11] MEDS: LORAZEPAM 1 MG TABLET PO SCH ×3 (09:32→20:41)
[2017-02-11] MEDS: FOLIC ACID 1 MG TABLET PO SCH (09:32)
[2017-02-11] MEDS: MULTIVITAMINS,THERAPEUTIC TABLET PO SCH (09:32)
[2017-02-11] MEDS: GABAPENTIN 300 MG CAPSULE PO SCH ×3 (09:32→20:41)
[2017-02-11] MEDS: LIDOCAINE 5% PATCH TD SCH (09:32)
[2017-02-11] MEDS: THIAMINE HCL 100 MG TABLET PO SCH (09:32)
[2017-02-11] MEDS: HYDROXYZINE PAMOATE 25 MG CAPSULE PO PRN ×3 (11:16→21:52)
--- NOTE | 2017-02-11 11:16 | NUR ---
PRN Vistaril 50mg for anxiety, manifested by increased HR 131. Will continue to monitor. Client desired to attend group therapy.
--- NOTE | 2017-02-11 12:16 | NUR ---
Reassessment PRN Vistaril 50mg effective, client able to attend group therapy, she stated "I feel less anxious, now."
[2017-02-11 12:59] VITALS: BP 116/78
[2017-02-11] MEDS: KETOROLAC TROMETHAMINE 30 MG INJ IM PRN (14:08)
--- NOTE | 2017-02-11 14:08 | NUR ---
PRN Toradol 30mh Inj IM administered to R deltoid Client with lower back pain at 8, grimacing noted. Call light within reach. Will continue to monitor.
--- NOTE | 2017-02-11 14:38 | NUR ---
Reassessment PRN Toradol 30mh Inj Client reports lower back pain at 2/10, but tolerable. Will continue to monitor.
[2017-02-11 16:55] VITALS: BP 129/82
--- NOTE | 2017-02-11 17:08 | NUR ---
PRN Vistaril 50mg for anxiety, manifested by increased HR 113. Will continue to monitor. Call light within reach.
[2017-02-11] MEDS: MIRALAX 17 GM POWD.PACK PO PRN (17:14)
--- NOTE | 2017-02-11 17:14 | NUR ---
PRN Miralax 17gm administered for constipation, abdomen soft, non-tender, quadrants x 4 active. Encourage client to increase fluid intake as tolerated. Call light within reach.
--- NOTE | 2017-02-11 18:08 | NUR ---
Reassessment PRN Vistaril 50mg effective, she reports feeling a little less anxious and plans to attend group therapy @ 1830.
--- NOTE | 2017-02-11 18:14 | NUR ---
Reassessment PRN Stefania 17gm Client reports no MB at this time, will endorse to incoming nurse to continue to monitor.
--- NOTE | 2017-02-11 18:46 | NUR ---
END OF SHIFT Endorsed to incoming nurse, client is a 56 yo female admitted for withdrawal from alcohol and benzodiazepines. She is on 5 day Ativan taper, tolerating well (day 4th). Last CIWA 5 @ 1600. She reports allergy to erythromycin, full code, regular diet. PRN Vistaril x 2 for anxiety, Toradol 30mg Inj for low back pain 01/27, effective. Miralax 17gm for constipation , client reports one BM. Client compliant with medication regime and group therapy. Adequate PO fluid intake 2082mL, void x 5. Client denies any history of withdrawal-induced seizure. She is on seizure precautions. Call light within reach. Side rails up x2/padded, bed locked and in low position.
--- NOTE | 2017-02-11 19:15 | NUR ---
START OF SHIFT NOTE : Client is a 56 yo female admitted for withdrawal from alcohol and benzodiazepines. She is on 5 day Ativan taper, tolerating well (day 4th). She reports allergy to erythromycin, full code, regular diet. Client compliant with medication regime and group therapy. Adequate Encouraged adequate PO fluid intake as tolerated. Patient denies any SI/HI. Encouraged patient to attend group therapies/sessions to learn new coping skills to prevent relapse. , Client denies any history of withdrawal-induced seizure. She is on seizure precautions. Call light within reach. Side rails up x2/padded, bed locked and in low position.
[2017-02-11 20:00] VITALS: BP 98/62
[2017-02-11] MEDS: DULOXETINE 30 MG CAPSULE.DR PO SCH (20:41)
[2017-02-11] MEDS: SENNOSIDES 1 TABLET PO SCH (20:41)
--- NOTE | 2017-02-11 21:00 | NUR ---
PRN VISTARIL Pt. complains of increased level of anxiety and mild muscle spasm. PRN VISTARIL given as ordered. Safety measures in place : bed on lowest position with side rails x2 up for safety, call light within reach. Will continue to monitor closely and offer help.
[2017-02-11] MEDS: TRAZODONE 100 MG TABLET PO SCH (21:49)
--- NOTE | 2017-02-11 22:00 | NUR ---
REASSESSMENT VISTARIL Pt. is sleeping , RR=16, unlabored and even. Safety measures in place : bed on lowest position with side rails x2 up for safety, call light within reach. Will continue to monitor closely and offer help.
[2017-02-12] MEDS: HYDROXYZINE PAMOATE 25 MG CAPSULE PO PRN ×5 (02:27→21:15)
[2017-02-12 04:00] VITALS: BP 92/60
[2017-02-12] MEDS ORDERED: HYDROXYZINE PAMOATE 25 MG CAPSULE PO SCH (06:00)
--- NOTE | 2017-02-12 06:41 | NUR ---
END OF SHIFT NOTE : Client is a 56 yo female admitted for withdrawal from alcohol and benzodiazepines. She is on 5 day Ativan taper, tolerating well (day 4th). She reports allergy to erythromycin, full code, regular diet. Client compliant with medication regime and group therapy. Adequate Encouraged adequate PO fluid intake as tolerated. Patient denies any SI/HI. Encouraged patient to attend group therapies/sessions to learn new coping skills to prevent relapse. , Client denies any history of withdrawal-induced seizure. She is on seizure precautions. Pt remains compliant with the treatment plan. PRN VISTARYL x2 given during my shift. V/S remain WNL. RR=16, even and unlabored, lungs clear upon auscultation, abdomen soft and non- distended. Pt denies nausea, vomiting and diarrhea. LAST CIWA= 5 at 0400 , INTAKE= 355 ml, voided x1 , slept 8.5 hours. Safety measures in place : bed on lowest position with side rails x2 up for safety, call light within reach. Will continue to monitor closely and offer help.
--- NOTE | 2017-02-12 07:30 | NUR ---
START OF SHIFT Rcvd endorsement from ongoing nurse, client is in room, a/o x4, she presents with irritable mood and flat affect. She reports restless legs and stated "I was not able to sleep at all last night, I was in bed, but with my eyes ope." Client denies any N/V/D or SI/HI. Encouraged client to increase fluid intake to facilitate detox. Encourage client to attend group therapy for skills to maintain sobriety. Client is a 56 yo female admitted for withdrawal from alcohol and benzodiazepines. She is on last of 5 day Ativan taper, tolerating well. Last CIWA 5 @ 0400. She reports allergy to erythromycin, full code, regular diet. PRN Vistaril x 2 for agitation, noted effective. Client slept 8 hrs. Client denies any history of withdrawal-induced seizure. She is on seizure precautions. Call light within reach. Side rails up x2/padded, bed locked and in low position.
[2017-02-12 08:25] VITALS: BP 120/73
[2017-02-12] MEDS: FOLIC ACID 1 MG TABLET PO SCH (08:29)
[2017-02-12] MEDS: LIDOCAINE 5% PATCH TD SCH (08:30)
[2017-02-12] MEDS: THIAMINE HCL 100 MG TABLET PO SCH (08:30)
[2017-02-12] MEDS: GABAPENTIN 300 MG CAPSULE PO SCH ×3 (08:30→21:16)
[2017-02-12] MEDS: LORAZEPAM 1 MG TABLET PO SCH ×2 (08:30→21:15)
[2017-02-12] MEDS: MULTIVITAMINS,THERAPEUTIC TABLET PO SCH (08:30)
--- NOTE | 2017-02-12 08:30 | NUR ---
PRN Vistaril 50mg for anxiety, manifested by wringing of hands, trembling. Will continue to monitor. Call light within reach.
--- NOTE | 2017-02-12 09:30 | NUR ---
Reassessment PRN Vistaril 50mg effective, she reports feeling a little less anxious. Will continue to monitor.
--- NOTE | 2017-02-12 10:13 | NUR ---
PRN Toradol 30mh Inj IM administered to L deltoid Client with R knee pain at 8/10, grimacing noted. Call light within reach. Will continue to monitor.
[2017-02-12] MEDS: KETOROLAC TROMETHAMINE 30 MG INJ IM PRN ×2 (10:27→21:22)
--- NOTE | 2017-02-12 10:33 | NUR ---
Reassessment PRN Toradol 30mg Inj Client reports R knee pain at 2/10, but tolerable. Will continue to monitor.
[2017-02-12] MEDS: CLONIDINE HCL 0.1 MG TABLET PO PRN ×3 (12:20→21:16)
--- NOTE | 2017-02-12 12:20 | NUR ---
PRN Clonidine 0.1mg for anxiety and irritability. Will continue to monitor.
[2017-02-12 12:30] VITALS: BP 124/73
--- NOTE | 2017-02-12 13:20 | NUR ---
Reassessment PRN Clonidine 0.1mg effective, she reports feeling a little less anxious and irritable. Will continue to monitor.
[2017-02-12] MEDS ORDERED: CLONIDINE HCL 0.1 MG TABLET PO ONE (13:30)
--- NOTE | 2017-02-12 14:14 | NUR ---
PRN Vistaril 50mg for anxiety, manifested by wringing of hands, pacing in room. Will continue to monitor. Call light within reach.
[2017-02-12] MEDS: MIRALAX 17 GM POWD.PACK PO PRN (14:23)
--- NOTE | 2017-02-12 14:24 | NUR ---
PRN Miralax 17gm administered for constipation, abdomen soft, non-tender, quadrants x 4 active. Encourage client to increase fluid intake as tolerated. Call light within reach.
--- NOTE | 2017-02-12 15:14 | NUR ---
Reassessment PRN Vistaril 50mg effective, she reports feeling a little less anxious. Will continue to monitor.
--- NOTE | 2017-02-12 15:24 | NUR ---
Reassessment PRN Miralax 17gm Client reports no MB at this time, will continue to monitor.
[2017-02-12 16:39] VITALS: BP 128/82
--- NOTE | 2017-02-12 18:27 | NUR ---
PRN Clonidine 0.1mg irritability and Vistaril 50mg for anxiety. Will continue to monitor.
--- NOTE | 2017-02-12 19:15 | NUR ---
START OF SHIFT NOTE : Client is a 56 yo female admitted for withdrawal from alcohol and benzodiazepines. She is on 5 day Ativan taper, tolerating well (day 5th). She reports allergy to erythromycin, full code, regular diet. Client compliant with medication regime and group therapy. Adequate Encouraged adequate PO fluid intake as tolerated. Patient denies any SI/HI. Encouraged patient to attend group therapies/sessions to learn new coping skills to prevent relapse. , Client denies any history of withdrawal-induced seizure. Pt. complains of increased level of anxiety, right leg pain, sleeplessness, discussed with pt. her PRN meds with evening meds. She is on seizure precautions. Safety measures in place : bed on lowest position with side rails x2 up for safety, call light within reach. Will continue to monitor closely and offer help.
--- NOTE | 2017-02-12 19:27 | NUR ---
Reassessment PRN Clonidine 0.1mg and Vistaril 50mg client reports feeling a little less anxious and irritable. Will continue to monitor
--- NOTE | 2017-02-12 19:28 | NUR ---
END OF SHIFT Endorsed to incoming nurse, client is a 56 yo female admitted for withdrawal from alcohol and benzodiazepines. She is on last of 5 day Ativan taper, tolerating well. Last CIWA 5 @ 1600. She reports allergy to erythromycin, full code, regular diet. PRN Vistaril x 2 for anxiety, Clonidine 0.1mg for anxiety, irritability x 2, Toradol 30mg Inj for R knee pain 01/27, effective. Miralax 17gm for constipation, client reports one BM. Client compliant with medication regime and group therapy. Adequate PO fluid intake 3050mL, void x 6. Client denies any history of withdrawal-induced seizure. She is on seizure precautions. Call light within reach. Side rails up x2/padded, bed locked and in low position.
[2017-02-12 20:00] VITALS: BP 159/98
--- NOTE | 2017-02-12 21:00 | NUR ---
PRN VISTARIL, TORADOL IM, CATAPRES Pt states feels anxious, complains of pain in the right leg 8/10. PRN VISTARIL, TORADOL IM, CATAPRES per MD order given and tolerated well. Safety measures in place : bed on lowest position with side rails x2 up for safety, call light within reach. Will continue to monitor closely and offer help.
[2017-02-12] MEDS: TRAZODONE 100 MG TABLET PO SCH (21:15)
[2017-02-12] MEDS: DULOXETINE 30 MG CAPSULE.DR PO SCH (21:15)
[2017-02-12] MEDS: SENNOSIDES 1 TABLET PO SCH (21:15)
--- NOTE | 2017-02-12 22:00 | NUR ---
REASSESSMENT VISTARIL, TORADOL IM, CATAPRES Pt. is sleeping, RR=16 unlabored and even. Safety measures in place : bed on lowest position with side rails x2 up for safety,
[2017-02-13 04:00] VITALS: BP 121/80
--- NOTE | 2017-02-13 04:30 | NUR ---
PRN VISTARIL, CATAPRES Pt states feels anxious, PRN VISTARIL, CATAPRES per MD order given and tolerated well. Safety measures in place : bed on lowest position with side rails x2 up for safety, call light within reach. Will continue to monitor closely and offer help.
[2017-02-13] MEDS: CLONIDINE HCL 0.1 MG TABLET PO PRN ×3 (05:12→21:13)
[2017-02-13] MEDS: HYDROXYZINE PAMOATE 25 MG CAPSULE PO PRN ×4 (05:12→21:13)
--- NOTE | 2017-02-13 05:30 | NUR ---
REASSESSMENT ALEKS JOHNSON Pt. is sleeping, RR=16 unlabored and even. Safety measures in place : bed on lowest position with side rails x2 up for safety, call light within reach. Will continue to monitor closely and offer help.
--- NOTE | 2017-02-13 06:36 | NUR ---
END OF SHIFT NOTE : Client is a 56 yo female admitted for withdrawal from alcohol and benzodiazepines. She is on 5 day Ativan taper, tolerating well (day 5th). She reports allergy to erythromycin, full code, regular diet. Client compliant with medication regime and group therapy. Adequate Encouraged adequate PO fluid intake as tolerated. Patient denies any SI/HI. Encouraged patient to attend group therapies/sessions to learn new coping skills to prevent relapse. , Client denies any history of withdrawal-induced seizure Pt remains compliant with the treatment plan. PRN VISTARIL, TORADOL IM, CATAPRESS given during my shift. V/S remain WNL. RR=16, even and unlabored, lungs clear upon auscultation, abdomen soft and non- distended. Pt denies nausea, vomiting and diarrhea. LAST CIWA=7 at 0400 , INTAKE= 750 ml, voided x2 , slept 5 hours. Safety measures in place : bed on lowest position with side rails x2 up for safety, call light within reach. Will continue to monitor closely and offer help.
--- NOTE | 2017-02-13 07:55 | NUR ---
START OF SHIFT Rcvd endorsement from ongoing nurse, client is in room, lying in bed, a/o x4, she presents with flat affect. She reports restless legs and anxiety. Client denies any N/V/D or SI/HI. Encouraged client to increase fluid intake to facilitate detox. Encourage client to attend group therapy for skills to maintain sobriety. Client is a 56 yo female admitted for withdrawal from alcohol and benzodiazepines. She completed 5 day Ativan taper, tolerating well. Last CIWA 7 @ 0400. She reports allergy to erythromycin, full code, regular diet. PRN Vistaril for anxiety, Clonidine for irritability and Toradol 30mg Inj for pain, noted effective. Client slept 8 hrs. Client denies any history of withdrawal-induced seizure. She is on seizure precautions. Call light within reach. Side rails up x2/padded, bed locked and in low position.
[2017-02-13 08:55] VITALS: BP 129/73
[2017-02-13] MEDS: LIDOCAINE 5% PATCH TD SCH (09:00)
[2017-02-13] MEDS: GABAPENTIN 300 MG CAPSULE PO SCH ×3 (09:23→21:12)
[2017-02-13] MEDS: FOLIC ACID 1 MG TABLET PO SCH (09:23)
[2017-02-13] MEDS: THIAMINE HCL 100 MG TABLET PO SCH (09:24)
[2017-02-13] MEDS: MULTIVITAMINS,THERAPEUTIC TABLET PO SCH (09:24)
--- NOTE | 2017-02-13 09:24 | NUR ---
PRN Vistaril 50mg for anxiety, manifested by wringing of hands, pacing in room. Will continue to monitor. Call light within reach.
[2017-02-13] MEDS: KETOROLAC TROMETHAMINE 30 MG INJ IM PRN ×2 (09:30→15:42)
--- NOTE | 2017-02-13 09:30 | NUR ---
PRN Toradol 30mh Inj IM administered to R buttock Client with low back at 8/10, grimacing noted. Call light within reach. Will continue to monitor.
--- NOTE | 2017-02-13 10:00 | NUR ---
Reassessment PRN Toradol 30mh Inj IM administered to R buttock Client reports relief from low back at 2/10, but tolerable. Call light within reach. Will continue to monitor.
--- NOTE | 2017-02-13 10:24 | NUR ---
Reassessment PRN Vistaril 50mg effective, she reports feeling a little less anxious. Will continue to monitor.
[2017-02-13] MEDS: MIRALAX 17 GM POWD.PACK PO PRN (12:33)
--- NOTE | 2017-02-13 12:34 | NUR ---
PRN Clonidine 0.1mg and Miralax 17gm for anxiety, irritability and constipation. Will continue to monitor.
[2017-02-13 12:40] VITALS: BP 113/80
--- NOTE | 2017-02-13 13:34 | NUR ---
Reassessment PRN Clonidine 0.1mg and Miralax 17gm, client feels less anxious, she was able to attend group therapy. She reports no BM yet. Will continue to monitor.
--- NOTE | 2017-02-13 14:41 | NUR ---
PRN Vistaril 50mg for anxiety, manifested by wringing of hands, pacing in room. Will continue to monitor. Call light within reach.
--- NOTE | 2017-02-13 15:41 | NUR ---
Reassessment PRN Vistaril 50mg effective, she reports feeling a little less anxious. Will continue to monitor.
--- NOTE | 2017-02-13 15:42 | NUR ---
PRN Toradol 30mh Inj IM administered to L buttock Client with low back at 9/10, grimacing and irritability noted. Call light within reach. Will continue to monitor.
--- NOTE | 2017-02-13 16:12 | NUR ---
Nursing notes, unable to reassess PRN Toradol 30mh Inj IM at this time, client went to patio to smoke a cigarette. Will continue to monitor.
--- NOTE | 2017-02-13 16:42 | NUR ---
Reassessment PRN Toradol 30mh Inj IM administered to L buttock Client reports relief from low back at 2/10, but tolerable. Call light within reach. Will continue to monitor.
[2017-02-13 16:55] VITALS: BP 128/77
[2017-02-13 17:30] LABS: *AMPHETAMINE, URINE NEGATIVE (NEGATIVE); *BARBITURATE, URINE NEGATIVE (NEGATIVE); *CANNABINOID, URINE NEGATIVE (NEGATIVE); *COCCAINE, URINE NEGATIVE (NEGATIVE); *OPIATE, URINE NEGATIVE (NEGATIVE); *PHENCYCLIDINE SCREEN,URINE NEGATIVE (NEGATIVE)
--- NOTE | 2017-02-13 19:09 | NUR ---
END OF SHIFT Endorsed to incoming nurse, client is a 56 yo female admitted for withdrawal from alcohol and benzodiazepines. She completed 5 day Ativan taper, tolerated well. Last CIWA 5 @ 1600. She reports allergy to erythromycin, full code, regular diet. PRN Vistaril x 2 for anxiety, Clonidine 0.1mg for anxiety, irritability, Toradol 30mg Inj for low back pain 8/10 x 2, noted effective. Miralax 17gm for constipation, no bm at this time. Client compliant with medication regime and group therapy. Adequate PO fluid intake 3452mL, void x 5. Client denies any history of withdrawal-induced seizure. She is on seizure precautions. Call light within reach. Side rails up x2/padded, bed locked and in low position.
--- NOTE | 2017-02-13 19:15 | NUR ---
START OF SHIFT NOTE : Client is a 56 yo female admitted for withdrawal from alcohol and benzodiazepines. She is on 5 day Ativan taper, tolerated well, will be D/C tomorrow. She reports allergy to erythromycin, full code, regular diet. Client compliant with medication regime and group therapy. Adequate Encouraged adequate PO fluid intake as tolerated. Patient denies any SI/HI. Encouraged patient to attend group therapies/sessions to learn new coping skills to prevent relapse. Client denies any history of withdrawal-induced seizure. Pt. received PRN meds during day shifts, see notes for details. Pt. complains of increased level of anxiety, right leg pain, sleeplessness, discussed with pt. her PRN meds with evening meds. She is on seizure precautions. Safety measures in place : bed on lowest position with side rails x2 up for safety, call light within reach. Will continue to monitor closely and offer help.
[2017-02-13 20:00] VITALS: BP 160/100
--- NOTE | 2017-02-13 21:00 | NUR ---
PRN CLONIDINE , VISTARIL . Patient complaining of increased anxiety. Clonidine, VISARIL given as ordered . Safety measures in place : bed on lowest position with side rails x2 up for safety, call light within reach. Will continue to monitor closely and offer help.
[2017-02-13] MEDS: TRAZODONE 100 MG TABLET PO SCH (21:12)
[2017-02-13] MEDS: SENNOSIDES 1 TABLET PO SCH (21:13)
[2017-02-13] MEDS: DULOXETINE 30 MG CAPSULE.DR PO SCH (21:13)
--- NOTE | 2017-02-13 22:00 | NUR ---
PRN REASSESSMENT CLONIDINE , VISTARIL Patient expressed his anxiety has decreased slightly after taking a Clonidine and Vistaril . Safety measures in place : bed on lowest position with side rails x2 up for safety, call light within reach. Will continue to monitor closely and offer help.
--- NOTE | 2017-02-14 04:40 | NUR ---
PRN VISTARIL . Patient complaining of increased anxiety. VISARIL given as ordered . Safety measures in place : bed on lowest position with side rails x2 up for safety, call light within reach. Will continue to monitor closely and offer help.
[2017-02-14] MEDS ORDERED: GABA-534 PO (04:41)
[2017-02-14] MEDS ORDERED: HYDR-3895 PO (04:41)
[2017-02-14] MEDS ORDERED: ONDA4TAB11 SL (04:41)
[2017-02-14] MEDS: HYDROXYZINE PAMOATE 25 MG CAPSULE PO PRN ×2 (05:03→09:25)
--- NOTE | 2017-02-14 05:40 | NUR ---
PRN REASSESSMENT VISTARIL Patient expressed his anxiety has decreased slightly after taking a Vistaril . Safety measures in place : bed on lowest position with side rails x2 up for safety, call light within reach. Will continue to monitor closely and offer help.
--- NOTE | 2017-02-14 06:37 | NUR ---
END OF SHIFT NOTE : Client is a 56 yo female admitted for withdrawal from alcohol and benzodiazepines. She is on 5 day Ativan taper, tolerated well, will be D/C today , UDS results placed to the chart. She reports allergy to erythromycin, full code, regular diet. Client compliant with medication regime and group therapy. Adequate Encouraged adequate PO fluid intake as tolerated. Patient denies any SI/HI. Encouraged patient to attend group therapies/sessions to learn new coping skills to prevent relapse. Client denies any history of withdrawal-induced seizure. Pt remains compliant with the treatment plan. PRN Vistaril and Clonidine given during my shift. V/S remain WNL. RR=16, even and unlabored, lungs clear upon auscultation, abdomen soft and non- distended. Pt denies nausea, vomiting and diarrhea. LAST CIWA=3 at 0400 , YHDHBI=2427 ml, voided x4 , slept 4 hours. Safety measures in place : bed on lowest position with side rails x2 up for safety, call light within reach. Will continue to monitor closely and offer help.
--- NOTE | 2017-02-14 07:15 | NUR ---
start of shift note: received pt from machinist 2nd shift nurse, pt is in stable condition at this time no s/s of pain or discomfort. pt is admitted to [facility] for etoh/opiate/benzo withdrawal/dependence. pt's last ciwa 3. pt is set to discharge this morning. will assist pt in discharging and will continue to monitor pt for any changes
[2017-02-14] MEDS: MULTIVITAMINS,THERAPEUTIC TABLET PO SCH (08:54)
[2017-02-14] MEDS: FOLIC ACID 1 MG TABLET PO SCH (08:54)
[2017-02-14] MEDS: GABAPENTIN 300 MG CAPSULE PO SCH (08:54)
[2017-02-14] MEDS: LIDOCAINE 5% PATCH TD SCH (08:54)
[2017-02-14] MEDS: THIAMINE HCL 100 MG TABLET PO SCH (08:54)
[2017-02-14 09:25] VITALS: BP 112/62
[2017-02-14] MEDS: CLONIDINE HCL 0.1 MG TABLET PO PRN (09:25)
--- NOTE | 2017-02-14 09:35 | NUR ---
discharge note: pt left the unit in stable condition, no s/s of withdrawal. pt is anxious about discharge. pt's v/s wnl. pt received vistaril prior to discharge. and was effective. pt teaching was administered and pt verbalized understanding. pt will be transferred home via own transportation with her sister
== END 2017-02-14 09:35 | disposition home or self-care (01) | DRG 895 ==
LOC: SRC 15:01
PROVIDERS: ADMIT Internal Medicine; ATTEND Internal Medicine
PROC: HZ2ZZZZ Detoxification Services for Substance Abuse Treatment (ICD-10-PCS; principal; 2017-02-07)
PROC: HZ41ZZZ Group Counseling for Substance Abuse Treatment, Behavioral (ICD-10-PCS; 2017-02-09)
PROC: HZ31ZZZ Individual Counseling for Substance Abuse Treatment, Behavioral (ICD-10-PCS; 2017-02-10)
DX: F10.220 Alcohol dependence with intoxication, uncomplicated (principal); F50.2 Bulimia nervosa; K70.10 Alcoholic hepatitis without ascites; F33.1 Major depressive disorder, recurrent, moderate; E83.42 Hypomagnesemia; E87.1 Hypo-osmolality and hyponatremia; F10.230 Alcohol dependence with withdrawal, uncomplicated; F13.220 Sedative, hypnotic or anxiolytic dependence with intoxication, uncomplicated; Y90.9 Presence of alcohol in blood, level not specified; D64.9 Anemia, unspecified; E87.6 Hypokalemia; F41.9 Anxiety disorder, unspecified; M79.7 Fibromyalgia; Z87.892 Personal history of anaphylaxis; Z88.1 Allergy status to other antibiotic agents; Z96.651 Presence of right artificial knee joint; Z79.899 Other long term (current) drug therapy; F11.23 Opioid dependence with withdrawal
CPT/HCPCS: 36415; 70030-TC; 80307; 83690; 83735; 84100; 84703; 85025; 86592; 86705; 86803; 87340; 87806; A4663; G0480; J1885; J3411; J3475; J7030; Q0162; Q0163

== ENCOUNTER 2017-04-14 22:58 | Inpatient (IN) | payer BC, OTHER ==
[~2017-04-14] VITALS: Ht 160 cm; Wt 45.4 kg
[~2017-04-14 22:58] MED LIST changes: +GABA-534 PO; +ONDA4TAB11 SL
[2017-04-14] MEDS ORDERED: LORAZEPAM 1 MG TABLET PO PRN (23:15)
[2017-04-14] MEDS ORDERED: MIRALAX 17 GM POWD.PACK PO PRN (23:15)
[2017-04-14] MEDS ORDERED: diphenhydrAMINE 50 MG CAPSULE PO PRN (23:15)
[2017-04-14] MEDS: THIAMINE HCL 200 MG/2 ML VIAL IM ONE (23:15)
[2017-04-14] MEDS ORDERED: LOPERAMIDE HCL 2 MG CAPSULE PO PRN ×2 (23:15)
[2017-04-14] MEDS ORDERED: DICYCLOMINE HCL 20 MG TABLET PO PRN (23:15)
[2017-04-14] MEDS ORDERED: LORAZEPAM 2 MG/1 ML VIAL IM PRN (23:15)
[2017-04-14] MEDS ORDERED: ONDANSETRON 4 MG/2 ML VIAL IM PRN (23:15)
[2017-04-14] MEDS ORDERED: ACETAMINOPHEN 325 MG TABLET PO PRN (23:15)
[2017-04-14] MEDS ORDERED: MAG HYDROX/AL HYDROX/SIMETH 30 ML LIQUID UDC PO PRN (23:15)
--- NOTE | 2017-04-14 23:40 | NUR ---
PRE - ADMISSION NOTE: Patient is a 57 year old female AOX4, presented to [facility] to detoxify from ETOH. Patient appears anxious, nervous, tremors to touch with flushed face. Patient is cooperative, speech is clear and audible. Patient reports Allergy to erythromycin. Patient's vital signs are as follows: BP 127/88, HR108, T: 98.3, RA SPO2 97%. Patient denies any pain at this time. Patient instructed on unit protocol of vitals Q4H and COWS/CIWA assessments. Patient verbalized understanding and agreement. Patient also instructed on policy regarding destruction of any controlled substances/prescriptions brought to facility, and handling of all medications. Patient verbalized understanding and agreement. Will complete admission assessment when patient is brought up to unit.
--- NOTE | 2017-04-14 23:52 | NUR ---
ADMISSION NOTE New patient is a 57 year old female admitted to [facility] on 04/14/2017 at 2352 for medically supervised safety withdrawal from ETOH. Patient reports Allergy to Erythromycin . Patient placed on Full Code, Vegetarian and Gluten Free Diet, Fall and Seizures Precautions. Patient denies a history of withdrawal-induced seizures. Past Medical History: Anxiety, Depression, Alcohol use disorder, Herpes. Patient denies Past Surgical History. PCP - "Glenn Baldwin MD". Pre-assessment completed in intake. Patient provided UDS test at this time. Patient is ambulatory with steady gate, stable, A&Ox4, speech is clear. Height: 63 in, Weight: 100 lbs by standing scale. VS upon admission: ; BP 127/88, HR 65, T 98.3, SPO2 97%, pain level "0/10". CIWA 7. The patient presented with anxiety, agitation, nervousness, tremors that can be felt, diaphoresis, restless legs, and fatigue. Patient denies SI/HI. Upon initial assessment respirations unlabored and even. Patient denies SOB and chest pain. Lungs Sounds are clear bilaterally. Bowel Sounds active in all x4 quadrants. Abdomen is soft and non-tender. PERRLA, brisk capillary refill, integrity analyst equal and strong. Skin is intact, warm and dry to touch. Patient reports the following Substances Use: 1 ."Alcohol PO . Patient reports "consuming 6 packs small bottles of beer every other day since 04/09/2017". Last used " 6 packs small bottles of beer on 04/14/2017 @2200". Longest sober period was "5 years: 1999 - 2004". Patient reports "Tobacco use since 1973 every day 1 pack = 20 cigarettes". Patient reports Multiples Treatment History: Last was done in [facility] in January,. Patient did not brought medications. Patient reports used "2 capsules of Benadryl PO and unknown medication 1 tab PO@2200". Patient unable recalls dosages. Patient oriented to his room, Nurse Call Light, [facility]. Encourage fluids as tolerated. Encourage to attend activities groups. All needs met. Safety measures on place. Call light within reach, bed in lowest position and locked, padded rails up bilaterally rails up bilaterally. Will continue to monitor closely. Addendum: 04/15/17 at 0155 by MAXIMILIAN WYATT RN Past Medical History: Anxiety, Depression, Alcohol use disorder, Right Knee surgery in 2001, Right ankle surgery in 2001, x9 Right leg surgeries in 1974. Addendum: 04/15/17 at 0326 by MAXIMILIAN WYATT RN Home Medications Reconciliation done. Addendum: 04/15/17 at 0616 by MAXIMILIAN WYATT RN Last used " 6 packs small bottles (330 ml - 1 bottle) of beer on 04/14/2017 @2200".
[2017-04-14 23:57] LABS: BASOPHILS % (AUTO) 0.3 % (0.0-2.0); EOSINOPHILS % (AUTO) 0.2 % (0.0-7.0); HEMATOCRIT 38.8 % (37-47); HEMOGLOBIN 12.4 G/DL (12.0-16.0); LYMPHOCYTES # (AUTO) 2.1 K/UL (0.8-4.8); LYMPHOCYTES % (AUTO) 13.3 % (20.5-51.5); MEAN CORPUSCULAR HEMOGLOBIN 28.3 UUG (27.0-31.0); MEAN CORPUSCULAR HGB CONC 32 g/dL (32.0-37.0); MEAN CORPUSCULAR VOLUME 88.3 FL (81.0-99.0); MONOCYTES # (AUTO) 0.9 K/UL (0.1-1.30); NEUTROPHILS # (AUTO) 12.4 K/UL (1.8-8.9); NEUTROPHILS % (AUTO) 80.2 % (38.5-71.5); PLATELET COUNT (AUTO) 416 K/UL (150-450); WHITE BLOOD COUNT (AUTO) 15.4 K/UL (4.0-11.2)
[2017-04-15] VITALS: BP 127/88
[2017-04-15 00:16] LABS: BILIRUBIN,TOTAL 0.5 mg/dL (0.2-1.0); CREATININE 0.9 mg/dL (0.6-1.3); MAGNESIUM 1.9 mg/dL (1.8-2.4); POTASSIUM 3.2 mmol/L (3.5-5.1); TOTAL PROTEIN, SERUM 7.7 g/dL (6.4-8.2)
[2017-04-15] MEDS ORDERED: POTASSIUM CHLORIDE 20 MEQ TAB.PRT.SR PO ONE (00:45)
[2017-04-15] MEDS ORDERED: LINA290C PO (01:13)
[2017-04-15 01:23] LABS: *AMPHETAMINE, URINE NEGATIVE (NEGATIVE); *BARBITURATE, URINE NEGATIVE (NEGATIVE); *CANNABINOID, URINE NEGATIVE (NEGATIVE); *COCCAINE, URINE NEGATIVE (NEGATIVE); *OPIATE, URINE NEGATIVE (NEGATIVE); *PHENCYCLIDINE SCREEN,URINE NEGATIVE (NEGATIVE)
[2017-04-15 01:34] LABS: *URINE HCG, QUAL NEGATIVE (NEGATIVE)
[2017-04-15] MEDS: THIAMINE HCL 200 MG/2 ML VIAL IM ONE (01:43)
[2017-04-15] MEDS: THIAMINE HCL 200 MG/2 ML VIAL ONE ×2 (01:56→01:59)
[2017-04-15] MEDS ORDERED: LINA72CA PO (03:25)
[2017-04-15] MEDS ORDERED: LORAZEPAM 1 MG TABLET ONE (03:50)
--- NOTE | 2017-04-15 03:50 | NUR ---
PRN ATIVAN 1MG 1 TAB PO ADMINISTRATION Patient c/o increased anxiety. Patient's assesses. CIWA 9. PRN Ativan 1 mg 1 tab PO for CIWA 9 administrated as ordered. Patient tolerated well. All needs met. Safety measures on place. Call light within reach, bed in lowest position and locked, padded rails up bilaterally rails up bilaterally. Will continue to monitor closely.
[2017-04-15 04:00] VITALS: BP 137/91
--- NOTE | 2017-04-15 04:50 | NUR ---
RE-ASSESSMENT Patient is sleeping. Respirations even and unlabored. RR:16. PRN Ativan 1 mg 1 tab PO administrated for anxiety @0350 was effective. All needs met. Safety measures on place. Call light within reach, bed in lowest position and locked, padded rails up bilaterally rails up bilaterally. Will continue to monitor closely.
--- NOTE | 2017-04-15 06:50 | NUR ---
END OF SHIFT NOTE: Patient is a 57 year old female admitted to [facility] on 04/14/2017 for medically supervised safety withdrawal from ETOH. Patient reports Allergy to Erythromycin. Patient placed on Full Code, Vegetarian and Gluten Free Diet, Fall and Seizures Precautions. Patient denies a history of withdrawal-induced seizures. Past Medical History: Anxiety, Depression, Alcohol use disorder, Surgeries of Right ankle and Right knee in 2001, x9 surgeries Right leg in 1974. Patient denies SI/HI. Patient reports the following Substances Use: ."Alcohol PO . Patient reports "consuming 6 packs small bottles of beer every other day since 04/09/2017". Last used " 6 packs small bottles (360 ml - 1 bottle) of beer on 04/14/2017 @2200". Last CIWA 9 @0400. CIWA's 's taken when patient's awake during night. Last VS @0400: T: 98.0, BP: 137/91, HR: 111, RR:22, RA O2Sat: 100%. Neck, headache pain level: "11/27". Patient denies SI/HI. Respirations unlabored and even. Skin is intact, warm and dry to touch. PRN Ativan 1 mg 1 tab PO administrated @0350 for anxiety was effective. K-Dur 40 MEQ 2 tabs PO administrated for low potassium level (3.2) @0143. Patient slept 5 hours, intake 1,600 ml, voided x4. Encouraged fluids intake as tolerated. Encouraged to attend groups activities. All needs met. Safety measures on place. Call light within reach, bed in lowest position and locked, padded rails up bilaterally. Patient endorsed to day shift nurse. Report given.
--- NOTE | 2017-04-15 08:00 | NUR ---
START OF SHIFT NOTE New patient is a 57 year old female admitted to [facility] for medically supervised withdrawal from ETOH. Allergy to Erythromycin . Full Code, Vegetarian and Gluten Free Diet, Fall and Seizures Precautions. Denies a history of withdrawal-induced seizures. Past Medical History: Anxiety, Depression, Alcohol use disorder, Herpes, right leg/knee/ankle chronic pain due to injuries. Received report from night RN. Pt last CIWA 9 at 4 am. Slept 5 hours. Given Ativan PRN 1 mg at 0353. 0800 nursing rounds, pt asleep, respirations unlabored and regular. Bed in low position and locked, side rails up x 2 and padded, call light within reach. Will continue to monitor.
[2017-04-15 08:25] VITALS: BP 105/69
[2017-04-15] MEDS: MULTIVITAMINS,THERAPEUTIC TABLET PO SCH (08:27)
[2017-04-15] MEDS: GABAPENTIN 300 MG CAPSULE PO SCH ×3 (08:27→21:21)
[2017-04-15] MEDS: FOLIC ACID 1 MG TABLET PO SCH (08:27)
[2017-04-15] MEDS: IBUPROFEN 600 MG TABLET PO PRN (08:41)
[2017-04-15] MEDS: ONDANSETRON ODT 4 MG TAB.RAPDIS SL PRN (08:41)
[2017-04-15] MEDS: CLONIDINE HCL 0.1 MG TABLET PO PRN (08:41)
[2017-04-15] MEDS: LORAZEPAM 1 MG TABLET PO PRN ×3 (08:41→13:37)
--- NOTE | 2017-04-15 08:41 | NUR ---
PRN MEDICATION ADMINISTRATION At 0841, CIWA 14, given Ativan 1 mg PRN. Pt also reporting anxiety, right leg ache/pain, nausea. Given PRN Clonidine, Motrin, Zofran SL. Will reassess.
[2017-04-15] MEDS: THIAMINE HCL 100 MG TABLET PO SCH (08:50)
[2017-04-15] MEDS ORDERED: TUBERCULIN,PURIF.PROT.DERIV. 5 TU/0.1 ML TEST ID ONE (09:00)
[2017-04-15] MEDS ORDERED: DOCUSATE SODIUM 250 MG CAPSULE PO SCH (09:00)
--- NOTE | 2017-04-15 09:11 | NUR ---
PRN MEDICATION REASSESSMENT Pt given Zofran SL at 0841 for nausea. At 0911, Pt states nausea unchanged.
--- NOTE | 2017-04-15 09:41 | NUR ---
PRN MEDICATION REASSESSMENT At 14, given Ativan 1 mg PRN. At 10, Dr. Devries notified. 840, Pt was given anxiety, right leg ache/pain. Given Clonidine, Motrin. At 940, anxiety and pain improved.
--- NOTE | 2017-04-15 11:21 | NUR ---
PRN MEDICATION ADMINISTRATION CIWA 9 at 1121. Given Ativan 1 mg PRN. Will reassess.
[2017-04-15 12:00] VITALS: BP 137/86
--- NOTE | 2017-04-15 12:21 | NUR ---
PRN MEDICATION REASSESSMENT At 1121, CIWA 9. Given Ativan 1 mg. At 1221, CIWA 7. Will continue to monitor.
[2017-04-15] MEDS ORDERED: LINZESS 290 MCG PO SCH ×2 (12:30→12:39)
[2017-04-15] MEDS ORDERED: DICYCLOMINE HCL 20 MG TABLET PO PRN (12:30)
--- NOTE | 2017-04-15 13:37 | NUR ---
PRN MEDICATION ADMINISTRATION At 1337, CIWA 6, given Ativan 1 mg PRN. Will reassess.
--- NOTE | 2017-04-15 14:35 | NUR ---
PRN MEDICATION REASSESSMENT Pt given Ativan 1 mg PRN at 1337 for CIWA 6. At 1435, CIWA 2.
[2017-04-15] MEDS ORDERED: LORAZEPAM 1 MG TABLET PO SCH ×2 (15:00→21:00)
[2017-04-15] MEDS ORDERED: PATIENT MAY USE OWN MED- MD OK PO ONE (15:30)
[2017-04-15 17:00] VITALS: BP 137/80
--- NOTE | 2017-04-15 19:17 | NUR ---
END OF SHIFT NOTE New patient is a 57 year old female admitted to [facility] for medically supervised withdrawal from ETOH. Allergy to Erythromycin . Full Code, Vegetarian and Gluten Free Diet, Fall and Seizures Precautions. Denies a history of withdrawal-induced seizures. Past Medical History: Anxiety, Depression, Alcohol use disorder, Herpes, right leg/knee/ankle chronic pain due to injuries. At 0841, CIWA 14, given Ativan 1 mg PRN. Pt also reporting anxiety, right leg ache/pain, nausea, given Clonidine, Motrin and SL Zofran.. At 0941, anxiety and pain improved. At 0911, Pt states nausea unchanged. At 0941, CIWA 10, Dr. Devries notified. CIWA 9 at 1121. Given Ativan 1 mg PRN. At 1121, CIWA 9. Given Ativan 1 mg. At 1221, CIWA 7. At 1337, CIWA 6, given Ativan 1 mg PRN. At 1437, CIWA 2. Report given to night RN. . Bed in low position and locked, side rails up x 2 and padded, call light within reach.
--- NOTE | 2017-04-15 19:17 | NUR ---
START OF SHIFT NOTE: Patient is a 57 year old female admitted to [facility] on 04/14/2017 at 2352 for medically supervised safety withdrawal from ETOH. Patient reports Allergy to Erythromycin. Patient is on Full Code, Vegetarian and Gluten Free Diet, Fall and Seizures Precautions. Patient denies a history of withdrawal-induced seizures. Past Medical History: Anxiety, Depression, Alcohol use disorder, Surgeries of Right ankle and Right knee in 2001, x9 surgeries Right leg in 1974. Patient reports the following Substances Use: "Alcohol PO . Patient reports "consuming 6 packs small bottles of beer every other day since 04/09/2017". Last used " 6 packs small bottles of beer on 04/14/2017 @2200". Patient reports longest sober period's "5 years: 1999 - 2004". Patient reports Multiples Treatment History: Last was done in [facility] in January,. Patient reports "Tobacco use since 1973 every day 1 pack = 20 cigarettes". Upon endorsement, patient is in her room alert and oriented x4, with stable gait. Speech is soft and clear. VS: T: 98.0, HR: 101, RA O2Sat 100%, BP: 145/92. Patient c/o neck/headache pain "10/27". CIWA 9. Respirations unlabored and even. Lungs Sounds are clear thoroughly. Abdomen is soft, non-tender. Bowels Sounds presents in all x4 quadrants. Skin is intact, warm, and dry. Encouraged to fluids intake as tolerated. Encouraged to attending groups activities. All needs met. Safety measures in place: Call light within reach, bed locked, and in lowest position, padded bed rails up bilaterally. Patient endorsed by day shift nurse, report received.
[2017-04-15 20:00] VITALS: BP 145/92
[2017-04-15] MEDS: TRAZODONE 100 MG TABLET PO SCH (21:21)
--- NOTE | 2017-04-15 21:21 | NUR ---
PRN TRAZODONE 200 MG 2TAB PO ADMINISTRATION Patient c/o insomnia. PRN Trazodone 200 mg 2 tab PO administrated with full glass of water as ordered. Patient tolerated well. All needs met. Safety measures on place. Call light within reach, bed in lowest position and locked, padded rails up bilaterally rails up bilaterally. Will continue to monitor closely.
--- NOTE | 2017-04-15 22:21 | NUR ---
RE-ASSESSMENT Patient is sleeping. Respirations even and unlabored. RR:14. PRN Trazodone PO was effective. All needs met. Safety measures on place. Call light within reach, bed in lowest position and locked, padded rails up bilaterally rails up bilaterally. Will continue to monitor closely.
[2017-04-16] VITALS: BP 110/69
[2017-04-16 04:00] VITALS: BP 108/69
--- NOTE | 2017-04-16 07:01 | NUR ---
END OF SHIFT NOTE: Patient is a 57 year old female admitted to [facility] on 04/14/2017 for medically supervised safety withdrawal from ETOH. Patient reports Allergy to Erythromycin. Patient is on Full Code, Vegetarian and Gluten Free Diet, Fall and Seizures Precautions. Patient denies a history of withdrawal-induced seizures. Past Medical History: Anxiety, Depression, Alcohol use disorder. Past Surgeries History: Right ankle and Right knee in 2001, Right leg surgeries in 975(x9 ). Patient denies SI/HI. Patient reports the following Substances Use: ."Alcohol PO . Patient reports "consuming 6 packs small bottles of beer every other day since 04/09/2017". Last used " 6 packs small bottles (360 ml - 1 bottle) of beer on 04/14/2017 @2200". Last CIWA 4 @0400. CIWA's 's taken when patient's awake during night. Last VS @0400: T: 98.8, BP: 108/69, HR: 72, RR:17, RA O2Sat: 97%, pain level: "0/10". Patient denies SI/HI. Respirations unlabored and even. Skin is intact, warm and dry to touch. No PRN Medications given last night. Patient slept 8 hours, intake 1,180 ml, voided x3. Encouraged fluids intake as tolerated. Encouraged to attend groups activities. All needs met. Safety measures on place. Call light within reach, bed in lowest position and locked, padded rails up bilaterally. Patient endorsed to day shift nurse. Report given.
--- NOTE | 2017-04-16 07:02 | NUR ---
Start of Shift Notes: Received patient in his room. Alert and verbally responsive. Oriented x 4. Able to make her needs known. Respirations even and unlabored. No SOB noted. Skin warm and dry to touch. Abdomen soft and non-distended. BS (+) in all 4 quadrants. No complains of N/V/D or constipation noted. No abdominal discomfort noted. Bladder non-distended. No complains of dysuria noted. Voids independently. Ambulatory ad sara with steady gait. Patient is a 57 year old female admitted for ETOH dependence who is only on PRNs at this time. Prior to admission, patient was using 6 packs of beer everyday since 04/09/2017. Has past medical hx of anxiety, depression, surgeries right ankle, right knee surgeries, and right leg surgery. Allergic to erythromycin. FULL CODE. Vegetarian/Gluten free diet. Fall and seizure precautions. Educated patient on her current plan of care for the day and her medication regimen. Encouraged oral fluid intake and encouragd group participation to learn new skills to prevent relapse. Will continue to monitor.
[2017-04-16 07:06] LABS: HEPATITIS B SURFACE AG Negative (Negative)
[2017-04-16 08:00] VITALS: BP 91/58
[2017-04-16] MEDS: DULOXETINE 30 MG CAPSULE.DR PO SCH (08:17)
[2017-04-16] MEDS: THIAMINE HCL 100 MG TABLET PO SCH (08:18)
[2017-04-16] MEDS: GABAPENTIN 300 MG CAPSULE PO SCH ×3 (08:18→21:09)
[2017-04-16] MEDS: FOLIC ACID 1 MG TABLET PO SCH (08:18)
[2017-04-16] MEDS: MULTIVITAMINS,THERAPEUTIC TABLET PO SCH (08:18)
[2017-04-16] MEDS: LORAZEPAM 1 MG TABLET PO SCH ×3 (08:18→21:09)
--- NOTE | 2017-04-16 11:00 | NUR ---
Incident Note: Reported by female CLUB CONCIERGE, patient was in the rec room, about to participate in group, when she attempted to sit down but missed the chair causing her to land on the floor with a sitting position. No changes in LOC noted. Patient remained alert and oriented x 4. Patient got up on her own without any complains of pain. Verbalized while laughing Well, that was embarrassing. I miss calculated that." Assessed floor area. No liquid or clutter noted on the floor. Patient was wearing non-skid shoes during the incident. Assessed patient for any injuries immediately. Able to move all extremities with AROM. No skin breakdown noted. No visible bruising noted at this time. Patient denies any complains of dizziness or lightheadedness before or after the incident. VS WNL. Notified Dr. Nelson. LINDEN made. Per , continue to monitor patient at this time.
[2017-04-16 12:00] VITALS: BP 141/91
[2017-04-16] MEDS: CLONIDINE HCL 0.1 MG TABLET PO PRN (12:05)
[2017-04-16] MEDS: IBUPROFEN 600 MG TABLET PO PRN ×2 (12:05→18:45)
--- NOTE | 2017-04-16 12:05 | NUR ---
Motrin 600 mg PO/Clonidine 0.1mg PO given: Patient complained of 6/10 neck pain and moderate anxiety. Medicated patient with Clonidine 0.1mg PO and Motrin 600 mg PO as ordered. Will monitor for effectiveness. Addendum: 04/16/17 at 1208 by NO VASQUEZ LVN BP 141/91, Pulse 99.
--- NOTE | 2017-04-16 13:05 | NUR ---
Re-assessment: Clonidine/Motrin Per patient, PRN Motrin was mildly effective in reducing patient's neck pain, less anxiety noted. BP 139/88. Pulse 90
[2017-04-16] MEDS: ONDANSETRON ODT 4 MG TAB.RAPDIS SL PRN (14:15)
--- NOTE | 2017-04-16 14:15 | NUR ---
Zofran 4 mg SL/Tylenol 650 mg PO given: Patient noted with complain of neck pain radiating to her back related to chronic pain. Also noted with complain of nausea. No emesis reported. Medicated patient with Tylenol 650 mg PO and Zofran 4 mg SL as ordered. Will monitor for effectiveness.
--- NOTE | 2017-04-16 15:15 | NUR ---
Re-assessment: Tylenol/Zofran Per patient, PRN Zofran was effective in reducing nausea, PRN Tylenol effective in reducing generalized pain.
[2017-04-16 16:00] VITALS: BP 127/88
--- NOTE | 2017-04-16 17:16 | NUR ---
Client was prompted by therapist to attend daily groups, and was informed of group times. Client stated he would attend.
--- NOTE | 2017-04-16 18:30 | NUR ---
MD Communication: Patient requested for Robaxin to be given to her for muscle aches on her neck due to chronic pain. Notified Dr. Nelson and orders received. MD is unable to enter orders. He is currently driving at this time.
[2017-04-16] MEDS: METHOCARBAMOL 750 MG TABLET PO PRN (18:45)
--- NOTE | 2017-04-16 18:45 | NUR ---
PRN MOTRIN/PRN ROBAXIN Pt c/o generalized body aches and back pain related to a bulging disc and rates pain 12/27. PRN Motrin 600mg and PRN Robaxin 750mg administered as ordered. Education provided. Primary night nurse to reassess.
--- NOTE | 2017-04-16 19:04 | NUR ---
End of Shift Notes: Patient continues to be on 5-day Ativan taper as ordered. No adverse reactions noted. Taper is tolerating taper well. VS monitored closely. No significant abnormalities noted. Withdrawal symptoms were closely monitored. Initial CIWA 9, patient presented with anxiety, agitation, chills, sweats and mild tremors. Last CIWA 5. Per patient, Ativan has been effective in reducing her withdrawal symptoms. haf episode of fall while in group.o injuries noted. Medicated patient with Motrin 600 mg PO at 1205 and Clonidine 0.1mg PO at 1205, Tylenol 650 mg PO at 1416, Zofran 4 mg SL at 1416. Then, at 1830, PRN Motrin and Robaxin were given due to chronic pain to her neck. Results pending. Patient is compliant with care and treatment. Appetite good. Able to participate in group and activities. All needs met and attended. Will continue to monitor closely
--- NOTE | 2017-04-16 19:45 | NUR ---
START OF SHIFT NOTE/ROBAXIN AND MOTRIN RE-ASSESSMENT RECEIVED REPORT FROM DAY SHIFT NURSE. PATIENT IS A 30 YEAR OLD MALE ADMITTED FOR ETOH/OPIATE/METH DEPENDENCE. PATIENT WAS PLACED ON 4 DAY SUBUTEX AND 3 DAY ATIVAN TAPER, TO START TOMORROW. PATIENT REPORTS PMH OF ANXIETY, DEPRESSION, SCOLIOSIS, BACK INJURY , TINNITUS AND HISTORY OF MRSA. NO SEIZURE HISTORY. SKIN INTACT. PATIENT DID NOT RECEIVE ANY PRN MEDICATION. LAST COWS 6 AND CIWA 3. RECEIVED PATIENT IN ROOM, RESTING. DENIES ANY PAIN AT THIS TIME. PATIENT STATES SHE FEELS MUCH BETTER, ROBAXIN AND MOTRIN EFFECTIVE. NO ON FALL/SEIZURE PRECAUTION. SAFETY MEASURES IN PLACE. CALL LIGHT IN REACH. WILL CONTINUE TO MONITOR.
[2017-04-16 20:00] VITALS: BP 131/80
[2017-04-16] MEDS: TRAZODONE 100 MG TABLET PO SCH (21:09)
[2017-04-17] VITALS: BP 109/71
--- NOTE | 2017-04-17 | NUR ---
CIWA DEFERRED PATIENT SLEEPING. CIWA DEFERRED. RESPIRATION EVEN AND UNLABORED. SAFETY MEASURES IN PLACE. CALL LIGHT IN REACH. WILL CONTINUE TO MONITOR.
[2017-04-17 04:00] VITALS: BP 108/60
--- NOTE | 2017-04-17 04:00 | NUR ---
CIWA DEFERRED PATIENT SLEEPING. CIWA DEFERRED. RESPIRATION EVEN AND UNLABORED. SAFETY MEASURES IN PLACE. CALL LIGHT IN REACH. WILL CONTINUE TO MONITOR.
--- NOTE | 2017-04-17 07:09 | NUR ---
END OF SHIFT NOTE PATIENT IS A 57 YEAR OLD FEMALE ADMITTED FOR ETOH DEPENDENCE. PATIENT WAS PLACED ON 2 DAYS ATIVAN TAPER, TOLERATED WELL AND NO ADVERSE REACTION . SKIN INTACT. PATIENT DID NOT RECEIVE ANY PRN MEDICATION. PATIENT COMPLIANT WITH MEDICATION AND TREATMENT PLAN. SAFETY MEASURES IN PLACE. CALL LIGHT IN REACH. WILL CONTINUE TO MONITOR. SLEPT 9 HOURS. FLUID INTAKE 355 ML. VOIDED X 1. NO BM. LAST CIWA 5.
--- NOTE | 2017-04-17 07:10 | NUR ---
Start of Shift Notes: Received patient in his room. Alert and verbally responsive. Oriented x 4. Able to make her needs known. Respirations even and unlabored. No SOB noted. Skin warm and dry to touch. Abdomen soft and non-distended. BS (+) in all 4 quadrants. No complains of N/V/D or constipation noted. No abdominal discomfort noted. Bladder non-distended. No complains of dysuria noted. Voids independently. Ambulatory ad sara with steady gait. Patient is a 57 year old female admitted for ETOH dependence who is only on PRNs at this time. Prior to admission, patient was using 6 packs of beer everyday since 04/09/2017. Has past medical hx of anxiety, depression, surgeries right ankle, right knee surgeries, and right leg surgery. Allergic to erythromycin. FULL CODE. Vegetarian/Gluten free diet. Fall and seizure precautions. Educated patient on her current plan of care for the day and her medication regimen. Encouraged oral fluid intake and encouraged group participation to learn new skills to prevent relapse. Will continue to monitor.
[2017-04-17] MEDS: LINZESS 290 MCG PO SCH (07:34)
[2017-04-17 08:00] VITALS: BP 96/63
[2017-04-17] MEDS ORDERED: LORAZEPAM 1 MG TABLET PO SCH (09:00)
[2017-04-17] MEDS: METHOCARBAMOL 750 MG TABLET PO PRN ×2 (09:07→19:53)
[2017-04-17] MEDS: MULTIVITAMINS,THERAPEUTIC TABLET PO SCH (09:07)
--- NOTE | 2017-04-17 09:07 | NUR ---
Robaxin 750 mg PO given: Patient complained of 6/10 neck pain related to spasms. Non-pharmacological interventions provided but ineffective. Medicated patient with Robaxin 750 mg PO as ordered. Will monitor for effectiveness.
[2017-04-17] MEDS: DULOXETINE 30 MG CAPSULE.DR PO SCH (09:08)
[2017-04-17] MEDS: THIAMINE HCL 100 MG TABLET PO SCH (09:08)
[2017-04-17] MEDS: FOLIC ACID 1 MG TABLET PO SCH (09:08)
[2017-04-17] MEDS: GABAPENTIN 300 MG CAPSULE PO SCH ×3 (09:08→21:36)
[2017-04-17 09:10] LABS: CREATININE 0.6 mg/dL (0.6-1.3); MAGNESIUM 1.6 mg/dL (1.8-2.4); PHOSPHOROUS 4.9 mg/dL (2.5-4.9); POTASSIUM 4.2 mmol/L (3.5-5.1)
[2017-04-17] MEDS: ONDANSETRON ODT 4 MG TAB.RAPDIS SL PRN (09:35)
--- NOTE | 2017-04-17 09:35 | NUR ---
Zofran 4 mg SL given: Patient complains of nausea. Medicated patient with Zofran 4 mg SL as ordered. No vomiting noted. Will monitor for effectiveness.
--- NOTE | 2017-04-17 10:07 | NUR ---
Re-assessment: Per patient, PRN Robaxin was effective in reducing neck pain. PL 2.
--- NOTE | 2017-04-17 10:35 | NUR ---
Re-assessment: Per patient, PRN Zofran was effective in eliminating nausea.
[2017-04-17 12:00] VITALS: BP_SYST 139; BP_SYST 149; BP_DIAS 86; BP_DIAS 96
[2017-04-17] MEDS: CLONIDINE HCL 0.1 MG TABLET PO PRN ×2 (12:47→19:53)
[2017-04-17] MEDS: KETOROLAC TROMETHAMINE 30 MG INJ IM PRN ×2 (12:47→21:37)
--- NOTE | 2017-04-17 12:47 | NUR ---
Toradol 30 mg IM given/Clonidine 0.1mg PO given: Patient complained of 8/10 pain to her neck related to chronic pain. Patient's BP 149/96. Appears anxious. Pulse 96. Medicated patient with Toradol 30 mg IM and Clonidine 0.1mg PO as ordered. Will monitor for effectiveness.
--- NOTE | 2017-04-17 13:07 | NUR ---
Re-assessment: Toradol 30 mg IM Per patient, PRN Toradol 30 mg IM was effective in reducing pain. [address] at this time.
[2017-04-17] MEDS ORDERED: MAGNESIUM OXIDE 400 MG TABLET PO ONE (13:30)
--- NOTE | 2017-04-17 13:47 | NUR ---
Re-assessment: Clonidine Patient's BP 135/87. PRN Clonidine was effective in reducing patient's blood pressure. Patient verbalizes less anxiety at this time.
[2017-04-17] MEDS ORDERED: INFLUENZA VACCINE 2017-2018 0.5 ML DISP.SYRIN IM ONE (15:00)
[2017-04-17] MEDS ORDERED: DICYCLOMINE HCL 10 MG CAPSULE PO PRN (15:29)
[2017-04-17 16:00] VITALS: BP 132/91
--- NOTE | 2017-04-17 18:48 | NUR ---
End of Shift Notes: Patient continues to be on 5-day Ativan taper as ordered. No adverse reactions noted. Taper is tolerating taper well. VS monitored closely. No significant abnormalities noted. Withdrawal symptoms were closely monitored. Initial CIWA 3, patient presented with anxiety, and tremors. Last CIWA 2. Per patient, Ativan has been effective in reducing her withdrawal symptoms . Medicated patient with Robaxin 750 mg PO at 0910 for neck pain, and Zofran 4 mg SL at 0935 for nausea with help after 1 hour. Toradol 30 mg IM given at 1247 for 8/10 neck pain and Clonidine 0.1mg PO given at 1247 due to elevated BP, with help after 1 hour. Patient is compliant with care and treatment. Appetite good. Able to participate in group and activities. All needs met and attended. Will continue to monitor closely.
--- NOTE | 2017-04-17 19:45 | NUR ---
START OF SHIFT NOTE RECEIVED REPORT FROM DAY SHIFT NURSE. PATIENT IS A 57 YEAR OLD FEMALE ADMITTED FOR ETOH DEPENDENCE. PATIENT COMPLETED HER 2 DAY ATIVAN TAPER. PATIENT IS MEDICALLY CLEARED TO BE DISCHARGE TOMORROW. PATIENT IS ALLERGIC TO ERYTHROMYCIN . NO SEIZURE HISTORY. SKIN INTACT. PATIENT WAS GIVEN PRN ROBAXIN. ZOFRAN, CLONIDINE AND TORADOL IM. LAST CIWA 2. RECEIVED PATIENT IN HER ROOM, REPORTS ANXIETY, RESTLESS , BLOOD PRESSURE NOTED 153/86 P- 81, RESTLESS AND C/O PAIN ON NECK AND SHOULDER 02/27. RELAXATION TECHNIQUE PROVIDED. ON FALL/SEIZURE PRECAUTION. SAFETY MEASURES IN PLACE. CALL LIGHT IN REACH. WILL CONTINUE TO MONITOR
[2017-04-17] MEDS: HYDROXYZINE PAMOATE 25 MG CAPSULE PO PRN (19:53)
--- NOTE | 2017-04-17 19:53 | NUR ---
PRN CLONIDINE, VISTARIL AND ROBAXIN PATIENT WAS GIVEN PRN CLONIDINE, VISTARIL AND ROBAXIN. PATIENT WAS C/O ANXIETY, NOTED RESTLESS AND C/O NECK AND BOTH SHOULDER PAIN. NON-PHARMACOLOGICAL INTERVENTION INEFFECTIVE. WILL MONITOR FOR EFFECTIVENESS
[2017-04-17 20:00] VITALS: BP 153/86
--- NOTE | 2017-04-17 20:00 | NUR ---
START OF SHIFT NOTE RECEIVED REPORT FROM DAY SHIFT NURSE. PATIENT IS A 57 YEAR OLD FEMALE ADMITTED FOR ETOH DEPENDENCE. PATIENT COMPLETED HER 2 DAY ATIVAN TAPER. PATIENT IS MEDICALLY CLEARED TO BE DISCHARGE TOMORROW. PATIENT IS ALLERGIC TO ERYTHROMYCIN . NO SEIZURE HISTORY. SKIN INTACT. PATIENT WAS GIVEN PRN ROBAXIN. ZOFRAN, CLONIDINE AND TORADOL IM. LAST CIWA 2. RECEIVED PATIENT IN HER ROOM, REPORTS ANXIETY, NOTED RESTLESS , BLOOD PRESSURE NOTED 153/86 P- 81, RESTLESS AND C/O PAIN ON NECK AND SHOULDER 02/27. RELAXATION TECHNIQUE PROVIDED. ON FALL/SEIZURE PRECAUTION. SAFETY MEASURES IN PLACE. CALL LIGHT IN REACH. WILL CONTINUE TO MONITOR Addendum: 04/18/17 at 0008 by KEAGAN GRAY LVN ERROR: DUPLICATE
--- NOTE | 2017-04-17 20:53 | NUR ---
PRN CLONIDINE, VISTARIL AND ROBAXIN RE-ASSESSMENT PATIENT IN ROOM, RESTING, SHE STATES SHE FEELS MUCH BETTER AND LESS ANXIOUS . BP-125/78 P-80. PAIN LEVEL IS NO 3/10, TOLERABLE. WILL CONTINUE TO MONITOR
[2017-04-17] MEDS ORDERED: PNEUMOCOCCAL 23-VAL P-SAC VAC 0.5 ML VIAL IM ONE (21:00)
--- NOTE | 2017-04-17 21:00 | NUR ---
PNEUMO VACCINATION PATIENT REQUESTED TO HAVE PNEUMO VACCINATION IN AM. PATIENT STATES SHE RECEIVED FLU SHOT AND TORADOL IM SHOT.
[2017-04-17] MEDS: TRAZODONE 100 MG TABLET PO SCH (21:36)
--- NOTE | 2017-04-17 21:37 | NUR ---
PRN TORADOL IM ADMINISTRATION PATIENT C/O GENERALIZED BODY ACHES 01/27, PRN TORADOL IM GIVEN. WILL MONITOR FOR EFFECTIVENESS
--- NOTE | 2017-04-17 22:07 | NUR ---
PRN TORADOL IM RE-ASSESSMENT PATIENT STATES TORADOL REALLY HELPS HER A LOT IN REDUCING HER PAIN . PAIN LEVEL IS NOW 2/10, TOLERABLE. WILL CONTINUE TO MONITOR
[2017-04-18] VITALS: BP 92/51
--- NOTE | 2017-04-18 | NUR ---
CIWA DEFERRED PATIENT SLEEPING. CIWA DEFERRED. RESPIRATION EVEN AND UNLABORED. SAFETY MEASURES IN PLACE. CALL LIGHT IN REACH. WILL CONTINUE TO MONITOR.
[2017-04-18] MEDS: HYDROXYZINE PAMOATE 25 MG CAPSULE PO PRN (03:42)
[2017-04-18] MEDS: METHOCARBAMOL 750 MG TABLET PO PRN (03:42)
--- NOTE | 2017-04-18 03:43 | NUR ---
RN note PRN Vistaril and Robaxin Pt c/o increasing anxiety and generalized muscle pain=11/27. Administered Vistaril 25 mg PO and Robaxin 750 mg PO as ordered. Will reassess.
[2017-04-18 04:00] VITALS: BP 101/60
--- NOTE | 2017-04-18 04:43 | NUR ---
PRN VISTARIL AND ROBAXIN RE-ASSESSMENT PATIENT ASLEEP AT THIS TIME. NO FACIAL GRIMACING, SLEEPING COMFORTABLY. WILL CONTINUE TO MONITOR.
[2017-04-18] MEDS: LINZESS 290 MCG PO SCH (07:03)
--- NOTE | 2017-04-18 07:18 | NUR ---
END OF SHIFT NOTE PATIENT IS A 57 YEAR OLD FEMALE ADMITTED FOR ETOH DEPENDENCE. PATIENT COMPLETED HER 2 DAY ATIVAN TAPER. PATIENT IS MEDICALLY CLEARED TO BE DISCHARGE TODAY. PATIENT COMPLIANT WITH MEDICATION AND TREATMENT PLAN. IS ALLERGIC TO ERYTHROMYCIN . NO SEIZURE HISTORY. SKIN INTACT. PATIENT WAS GIVEN PRN CLONIDINE , VISTARIL X 2 , ROBAXIN X 2, TORADOL IM. LAST CIWA 2. CONTINUE RELAXATION TECHNIQUE PROVIDED TO PATIENT DURING SHIFT. ON FALL/SEIZURE PRECAUTION. SAFETY MEASURES IN PLACE. CALL LIGHT IN REACH. WILL CONTINUE TO MONITOR. SLEPT 8 HOURS. FLUID INTAKE 855 ML. VOIDED X 2 . NO BM. LAST CIWA 1. Addendum: 04/18/17 at 0719 by KEAGAN GRAY LVN DUPLICATE
--- NOTE | 2017-04-18 07:30 | NUR ---
START OF SHIFT NOTE: Report received from night time nanny nurse. Patient is a 57 year old female admitted for ETOH dependence on 04-14-17. Pt to be discharged this AM. Alert and oriented X4. Color good, skin warm and dry. Respirations even and unlabored. Safety precautions observed. Call light within reach.
[2017-04-18] MEDS ORDERED: METH-406 PO (08:09)
[2017-04-18] MEDS ORDERED: ONDA4TAB11 SL (08:09)
[2017-04-18] MEDS ORDERED: GABA-534 PO (08:09)
[2017-04-18] MEDS ORDERED: CLON0.1T14 PO (08:09)
[2017-04-18] MEDS ORDERED: IBUP-1955 PO (08:09)
[2017-04-18] MEDS ORDERED: HYDR-3895 PO (08:09)
[2017-04-18] MEDS ORDERED: DULO30CA2 PO (08:09)
[2017-04-18] MEDS ORDERED: TRAZ-147 PO (08:09)
[2017-04-18] MEDS: DULOXETINE 30 MG CAPSULE.DR PO SCH (08:33)
[2017-04-18] MEDS: MULTIVITAMINS,THERAPEUTIC TABLET PO SCH (08:33)
[2017-04-18] MEDS: FOLIC ACID 1 MG TABLET PO SCH (08:34)
[2017-04-18] MEDS: GABAPENTIN 300 MG CAPSULE PO SCH (08:34)
[2017-04-18] MEDS: THIAMINE HCL 100 MG TABLET PO SCH (08:34)
[2017-04-18] MEDS: KETOROLAC TROMETHAMINE 30 MG INJ IM PRN (08:36)
--- NOTE | 2017-04-18 08:49 | NUR ---
Discharge papers and medication bag signed. Toradol 30mg IM prn given and pneumovax given RD
[2017-04-18 08:51] VITALS: BP 113/68
[2017-04-18] MEDS ORDERED: PNEUMOCOCCAL 23-VAL P-SAC VAC 0.5 ML VIAL IM ONE (09:00)
--- NOTE | 2017-04-18 09:45 | NUR ---
Pt discharged in stable condition with all belongings, valuables and home medications. Denies SI/HI To home via private car.
== END 2017-04-18 09:45 | disposition home or self-care (01) | DRG 895 ==
LOC: SRC 22:58
PROVIDERS: ADMIT Internal Medicine; ATTEND Internal Medicine
PROC: HZ2ZZZZ Detoxification Services for Substance Abuse Treatment (ICD-10-PCS; principal; 2017-04-14)
PROC: HZ41ZZZ Group Counseling for Substance Abuse Treatment, Behavioral (ICD-10-PCS; 2017-04-16)
DX: F10.230 Alcohol dependence with withdrawal, uncomplicated (principal); K70.10 Alcoholic hepatitis without ascites; F50.89 Other specified eating disorder; F68.10 Factitious disorder imposed on self, unspecified; B96.89 Other specified bacterial agents as the cause of diseases classified elsewhere; E87.6 Hypokalemia; Y90.9 Presence of alcohol in blood, level not specified; M79.7 Fibromyalgia; Z87.892 Personal history of anaphylaxis; Z88.1 Allergy status to other antibiotic agents; Z96.651 Presence of right artificial knee joint; Z81.1 Family history of alcohol abuse and dependence; G47.00 Insomnia, unspecified; F13.21 Sedative, hypnotic or anxiolytic dependence, in remission; F41.9 Anxiety disorder, unspecified; F32.9 Major depressive disorder, single episode, unspecified; G89.29 Other chronic pain; R73.9 Hyperglycemia, unspecified; K58.0 Irritable bowel syndrome with diarrhea; F60.3 Borderline personality disorder; F45.9 Somatoform disorder, unspecified
CPT/HCPCS: 36415; 70030-TC; 80307; 83735; 84100; 84703; 85025; 86580; 86592; 86705; 86803; 87340; 87806; 90686; 90732; A4663; G0480; J1885; J3411; Q0162